=== PATIENT | female | born 1940 | race Caucasian/White ===

== ENCOUNTER 2016-09-02 09:11 | Inpatient (IN) | payer MEDICARE, MEDICAID ==
[~2016-09-02] VITALS: Ht 147.3 cm; Wt 66.6 kg
[~2016-09-02 09:11] MED LIST: AMLO10TA2 PO; AMOX500T2 PO; CALC-586 PO; CHOL200035 PO; EVER5TAB; EXEM25TA5; FERR325T40 PO; GLUC100015 PO; LOSA1TAB96 PO; MAGN250T33 PO; POTA20TA10 PO; WARF1TAB47 PO
--- OUTSIDE RECORDS SUMMARY | 2016-09-02 09:15 | XMS REPORT | Continuity of Care Document ---
Author Author [facility] Organization [facility] Address Unknown Phone Unavailable Support Name Relationship Address Phone PETE BROWN MD Caregiver [address] [place] [address] Unavailable PEBBLES RUTLEDGE MD Caregiver [address] [place] [address] Unavailable SHEREEN LOPES Next Of Kin Unknown [phone] Insurance Providers Guarantor Tanya Lopes Address [address] [place] [address] Email DENIED/NO TO PT [facility] Payer Medicaid Policy Number [id number] Subscriber's Name Tanya Lopes Relationship 18 Self Effective Date 16 Expiration Date 16 Payer Medicare Policy Number [id number] Subscriber's Name Tanya Lopes Relationship 18 Self Problems Active Problems Medical Problem Onset Date Status Anemia Unknown Medications Current Home Medications Medication Dose Units Route Directions Days Qty Instructions Start Date Amlodipine Besylate 10 Mg Tablet 10 Mg Oral Daily 11/11/15 Calcium Carbonate/Vitamin D3 (Calcium + D 600 Mg Tablet) 1 Tab Tablet 1 Tab Oral Twice A Day 09/16/13 Cholecalciferol (Vitamin D3) (Vitamin D3) 2,000 Unit Capsule 2,000 Unit Oral Daily 09/16/13 Glucosamine Sulfate 2KCL (Glucosamine) 1,000 Mg Tablet 2,000 Mg Oral Daily 08/15/13 Losartan/Hydrochlorothiazide (Losartan-Hctz 100-25 Mg Tab) 1 Each Tablet 1 Tab Oral Daily 11/11/15 Potassium Chloride (Klor-Con M20) 20 Meq Tablet 20 Meq Oral Onetime 30 Days 30 Tablet 11/13/15 Past Home Medications Medication Directions Ordered Status Acetaminophen (Tylenol) 325 Mg Tablet, 650 Mg Oral As Needed 07/17/11 Discontinued Acetylcarnitine Hcl (Acetyl L-Carnitine) 250 Mg Capsule, 400 Mg Oral Daily Discontinued Everolimus (Afinitor) 5 Mg Tablet, 2 Tab Oral Daily 11/11/15 Discontinued Exemestane (Aromasin) 25 Mg Tablet, 1 Tab Oral Daily 11/11/15 Discontinued Octreotide Acetate (Sandostatin) 500 Mcg/1 Ml Ampul, 0.2 Ml Sub-Q Every 4 Weeks 03/04/14 Discontinued Potassium Chloride 10 Meq Tab.er.prt, 1 Tab Oral Daily 11/11/15 Discontinued Prochlorperazine Maleate 10 Mg Tablet, 10 Mg Oral Q8h Prn 08/27/11 Discontinued Thioctic Acid (Alpha Lipoic Acid) 100 Mg Capsule, 200 Mg Oral Daily 08/27/11 Discontinued Warfarin Sodium (Coumadin) 5 Mg Tablet, 2.5 Mg Oral Every Sunday, Sunday, Sunday, , And Sunday06/01/15 Discontinued Warfarin Sodium 1 Mg Tablet, 2 Mg Oral Every Sunday06/01/15 Discontinued Social History Social History Problem Response Recorded Date/Time Onset Date Status Chewing Tobacco Status No 09/17/2013 1:16pm Not Applicable Not Applicable Hx Substance Use No 08/20/2015 10:36am Not Applicable Not Applicable Hx Alcohol Use No 11/12/2015 4:45pm Not Applicable Not Applicable Has the pt used tobacco in the last 12 months No 11/11/2015 12:58pm Not Applicable Not Applicable Tobacco Usage none 11/12/2015 3:48pm Not Applicable Not Applicable Query Response Start Date Stop Date Smoking Status Never smoker Hospital Discharge Instructions Current inpatient/outpatient. Discharge instructions are currently unavailable. Plan of Care Current inpatient/outpatient. The plan of care is currently unavailable Functional Status No functional status results. Allergies, Adverse Reactions, Alerts Allergen Type Severity Reaction Status Last Updated Adhesive Allergy Unknown RASH Active 08/23/15 Tramadol Allergy Severe CRAMPING /RASH/ ITCHING Active 08/23/15 Immunizations Query Response on File Recorded Date/Time Hx Influenza Vaccination Y -201411/11/15 12:58pm Hx Pneumococcal Vaccination Y 11/11/15 12:58pm Hx Influenza Vaccination Y 11/11/15 12:58pm Influenza Vaccine Hx 04/201511/12/15 10:43am Vital Signs No known vital signs results. Results Laboratory Results Test Name Result Units Flags Reference Collection Date/Time Result Date/ Time Comments White Blood Count 6.1 T/MM3 4.5-11.0 05/09/2016 9:05/09/2016 9: 29am Red Blood Count 4.09 M/MM3 4.00-5.20 05/09/2016 9:05/09/2016 9: 29am Hemoglobin 8.5 GM/DL L 12-16 05/09/2016 9:05/09/2016 9:29am Hematocrit 26.9 % L 36-46 05/09/2016 9:05/09/2016 9:29am Mean Corpuscular Volume 65.8 UM3 L 80-100 05/09/2016 9:05/09/2016 9 :29am Mean Corpuscular Hemoglobin 20.8 UUG L 26-34 05/09/2016 9:2015 9:29am Mean Corpuscular Hemoglobin Concent 31.6 GM/DL 31-37 05/09/2016 9:05/09/2016 9:29am RDW Standard Deviation 49.9 FL 36.9-50.2 05/09/2016 9:05/09/2016 9 :29am Platelet Count 292 T/MM3 130-400 05/09/2016 9:05/09/2016 9:29am Mean Platelet Volume 8.3 UM3 L 9.4-12.4 05/09/2016 9:05/09/2016 9: 29am Neutrophils (%) (Auto) 77.7 % H 33-66 05/09/2016 9:05/09/2016 9: 29am Lymphocytes (%) (Auto) 13.1 % L 23-45 05/09/2016 9:05/09/2016 9: 29am Monocytes (%) (Auto) 7.5 % 0-9.0 05/09/2016 9:05/09/2016 9:29am Eosinophils (%) (Auto) 1.1 % 0-4 05/09/2016 9:05/09/2016 9:29am Basophils (%) (Auto) 0.3 % 0-2 05/09/2016 9:05/09/2016 9:29am Immature Granulocyte % (Auto) 0.3 % 0.0-0.5 05/09/2016 9:2015 9:29am Absolute Neutrophils (auto) 4.8 T/MM3 1.8-7.7 05/09/2016 9:2015 9:29am Absolute Lymphocytes (auto) 0.8 T/MM3 L 1-4.8 05/09/2016 9:2015 9:29am Absolute Monocytes (auto) 0.5 T/MM3 0-0.8 05/09/2016 9:05/09/2016 9:29am Absolute Eosinophils (auto) 0.1 T/MM3 0-0.5 05/09/2016 9:2015 9:29am Absolute Basophils (auto) 0.0 T/MM3 0-0.2 05/09/2016 9:05/09/2016 9:29am Absolute Immature Granulocyte (auto 0.02 T/MM3 0.00-0.03 05/09/2016 9: 05/09/2016 9:29am Prothromb Time International Ratio 3.25 H 0.99-1.21 05/09/2016 9:05/09/2016 9:35am THERAPUTIC RANGE=2.00-3.00 FOR ANTI-THROMBOSIS THERAPUTIC RANGE=2.50-3.50 FOR IMPLANTED VALVE Icterus Index < 2 0-7 05/09/2016 9:05/09/2016 9:41am Chemistry Specimen Hemolysis < 15 0-25 05/09/2016 9:05/09/2016 9 :41am 0-25: Specimen Exhibited No Hemolysis. Turbidity < 20 0-20 05/09/2016 9:05/09/2016 9:41am Sodium Level 139 MEQ/L 134-144 05/09/2016 9:05/09/2016 9:41am Potassium Level 3.4 MEQ/L L 3.6-5 05/09/2016 9:05/09/2016 9:41am Chloride Level 99 MEQ/L 98-107 05/09/2016 9:05/09/2016 9:41am Carbon Dioxide Level 22 MEQ/L 22-30 05/09/2016 9:2305/09/2016 9: 41am Anion Gap 18 MEQ/L H 5-15 05/09/2016 9:05/09/2016 9:41am Blood Urea Nitrogen 22.0 MG/DL H 7-17 05/09/2016 9:05/09/2016 9: 41am Creatinine 1.0 MG/DL 0.7-1.2 05/09/2016 9:05/09/2016 9:41am BUN/Creatinine Ratio 22 RATIO 6-26 05/09/2016 9:05/09/2016 9:41am Glomerular Filtration Rate Calc 54 05/09/2016 9:05/09/2016 9: 41am Glucose Level 117 MG/DL H 65-110 05/09/2016 9:05/09/2016 9:41am Calculated Osmolality 272 MOSM/KG 261-280 05/09/2016 9:05/09/2016 9:41am Calcium Level 8.8 MG/DL 8.4-10.2 05/09/2016 9:05/09/2016 9:41am Phosphorus Level 3.1 MG/DL 2.5-4.5 05/09/2016 9:05/09/2016 9:41am Total Bilirubin 0.80 MG/DL 0.20-1.30 05/09/2016 9:05/09/2016 9: 41am Alkaline Phosphatase 104 U/L 38-126 05/09/2016 9:05/09/2016 9: 41am Total Protein 7.8 G/DL 6.3-8.2 05/09/2016 9:05/09/2016 9:41am Albumin 4.5 G/DL 3.5-5.0 05/09/2016 9:05/09/2016 9:41am Globulin 3.3 G/DL 2.4-3.6 05/09/2016 9:05/09/2016 9:41am Albumin/Globulin Ratio 1.4 RATIO 1.1-2.2 05/09/2016 9:05/09/2016 9 :41am Aspartate Amino Transf (AST/SGOT) 46 U/L H 14-36 05/09/2016 9:05/09 9:41am Alanine Aminotransferase (ALT/SGPT) 51 U/L 9-52 05/09/2016 9:05/09 9:41am Magnesium Level 1.2 MG/DL L 1.6-2.3 05/09/2016 9:23am 05/09/2016 9:54am Carcinoembryonic Antigen 15.10 UG/L H 0-3.0 05/09/2016 9:23am 2015 10:14am CA 27.29 206.01 U/ML D H 0-37.7 05/09/2016 9:23am 05/09/2016 11:33am Thyroid Stimulating Hormone (TSH) 1.52 MIU/L 0.47-4.68 03/06/2016 10: 27am 03/06/2016 11:37am Urine Color YELLOW YELLOW 03/06/2016 10:27am 03/06/2016 11:01am Urine Turbidity SL CLOUDY CLEAR 03/06/2016 10:27am 03/06/2016 11: 01am Urine Specific [place] 1.025 1.015-1.025 03/06/2016 10:27am 2015 11:01am Urine pH 6.0 5.0-8.0 03/06/2016 10:27am 03/06/2016 11:01am Urine Leukocyte Esterase NEGATIVE NEGATIVE 03/06/2016 10:27am 2015 11:01am Urine Nitrite NEGATIVE NEGATIVE 03/06/2016 10:27am 03/06/2016 11: 01am Urine Protein 2+ A NEGATIVE 03/06/2016 10:27am 03/06/2016 11:01am Urine Glucose (UA) NEGATIVE NEGATIVE 03/06/2016 10:27am 03/06/2016 11 :01am Urine Ketones NEGATIVE NEGATIVE 03/06/2016 10:27am 03/06/2016 11: 01am Urine Urobilinogen 0.2 EU/DL NORMAL 03/06/2016 10:27am 03/06/2016 11: 01am Urine Bilirubin 1+ A NEGATIVE 03/06/2016 10:27am 03/06/2016 11:01am Urine Blood 3+ A NEGATIVE 03/06/2016 10:27am 03/06/2016 11:01am Urine WBC 0-1 /HPF 0-5 03/06/2016 10:27am 03/06/2016 11:08am Urine RBC 3-5 /HPF H 0-3 03/06/2016 10:27am 03/06/2016 11:08am Urine Squamous Epithelial Cells 10-20 03/06/2016 10:27am 2015 11:44am --- 03/06/16 1143 --- UR SQUAM EPI previously reported as: 5-10 Urine Renal Epithelial Cells 1-3 /HPF 03/06/2016 10:27am 03/06/2016 11:44am Urine Bacteria TRACE H NEGATIVE 03/06/2016 10:27am 03/06/2016 11:08am Urine Culture Indicated CULT NOT INDICATED 03/06/2016 10:27am 03/06 11:08am Name: TANYA LOPES Unit #: [id number] : 1940 Sex: F Admit Date: Loc / Svc: VERNA Discharge Date: DIAGNOSTIC IMAGING REPORT Report #: [id number] [facility] [place] Indication: ITS.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 Approximately 60 minutes later 3D PET/CT imaging was performed from the skull base through the mid thighs. The CT images are for attenuation correction purposes only. Findings: Some misregistration artifact noted in the head. No gross abnormal uptake seen within the skull base or neck. Metallic artifact from prior dental restorations. No abnormally metabolic pulmonary nodules or masses. Mild atelectasis in the lung bases. Expected myocardial uptake. No axillary or mediastinal adenopathy. Similar intensity of uptake within the large right hepatic metastasis. This now has an SUV max of 4.9 which is within measurement variability of the comparison. There is however a new area of uptake more superiorly in the right lobe of the liver at location -884.5 with an SUV max of 5.4 which is within the confines of the existing CT abnormality. No other definite new sites of metabolic uptake within the liver. Expected genitourinary and bowel uptake. Lytic lesion in the left iliac bone is again noted with an SUV max of 3.5, similar to the comparison. No new areas of abnormal metabolic uptake seen within the skeleton. Impression: Small new focus of FDG uptake within the patient's existing large right hepatic metastasis with an overall similar degree of uptake within the pre-existing PET lesion here. Stable uptake in the left iliac metastasis. No distinctly new sites of metastatic disease appreciated. . Procedures Procedure Status Date Provider(s) COMPREHEN METABOLIC PANEL Completed 12/14/15 ASSAY OF MAGNESIUM Completed 12/14/15 ASSAY OF PHOSPHORUS Completed 12/14/15 COMPLETE CBC W/AUTO DIFF WBC Completed 12/14/15 METABOLIC PANEL TOTAL CA Completed 12/14/15 ASSAY OF MAGNESIUM Completed 12/14/15 ASSAY OF PHOSPHORUS Completed 12/14/15 COMPLETE CBC W/AUTO DIFF WBC Completed 12/14/15 COMPLETE CBC W/AUTO DIFF WBC Completed 12/14/15 COMPREHEN METABOLIC PANEL Completed 12/14/15 ASSAY OF MAGNESIUM Completed 12/14/15 ASSAY OF PHOSPHORUS Completed 12/14/15 COMPLETE CBC W/AUTO DIFF WBC Completed 12/14/15 COMPREHEN METABOLIC PANEL Completed 12/14/15 ASSAY OF MAGNESIUM Completed 12/14/15 ASSAY OF PHOSPHORUS Completed 12/14/15 COMPLETE CBC W/AUTO DIFF WBC Completed 12/14/15 COMPREHEN METABOLIC PANEL Completed 12/14/15 ASSAY OF MAGNESIUM Completed 12/14/15 ASSAY OF PHOSPHORUS Completed 12/14/15 COMPLETE CBC W/AUTO DIFF WBC Completed 12/14/15 COMPREHEN METABOLIC PANEL Completed 03/06/16 URINALYSIS AUTO W/SCOPE Completed 03/06/16 ASSAY THYROID STIM HORMONE Completed 03/06/16 COMPLETE CBC W/AUTO DIFF WBC Completed 03/06/16 CT THORAX W/DYE Completed 04/24/16 CT ABDOMEN W/DYE Completed 04/24/16 273643"INFUSION, NORMAL SALINE SOLUTION , 250 CC" Completed 04/24/16 142089"LOW OSMOLAR CONTRAST MATERIAL, 300-399 MG/ML IODINE C Completed Encounters Encounter Location Arrival/Admit Date Discharge/Depart Date Attending Provider Registered Clinic [facility] 05/31/16 6:16am PETE BROWN MD Discharged Recurring [facility] 05/09/16 9:12am 06/03/16 11:41pm HUE ZUÑIGA APRN Registered Clinic [facility] 04/24/16 9:10am PETE BROWN MD Registered Clinic [facility] 03/06/16 10:50am PEBBLES RUTLEDGE MD Discharged Recurring [facility] 12/14/15 9:43am 05/26/16 11:59pm HUE ZUÑIGA APRN
--- OUTSIDE RECORDS SUMMARY | 2016-09-02 09:15 | XMS REPORT | Continuity of Care Document ---
Author Author [facility] Organization [facility] Address Unknown Phone Unavailable Support Name Relationship Address Phone PETE BROWN MD Caregiver [address] [address] Unavailable PEBBLES RUTLEDGE MD Caregiver [address] [place] [address] Unavailable SHEREEN LOPES Next Of Kin Unknown [phone] Insurance Providers Guarantor Tanya Lopes Address [address] [place] [address] Email DENIED/NO TO PT [facility] Payer Medicaid Policy Number [id number] Subscriber's Name Tanya Lopes Relationship 18 Self Effective Date 16 Expiration Date 16 Payer Medicare Policy Number [id number] Subscriber's Name Tanya Lopes Relationship 18 Self [...] 03/06/2016 10:27am 03/06/2016 11: 01am Urine Specific [place] 1.025 1.015-1.025 03/06/2016 10:27am 2015 11:01am Urine [...] 03/06 11:08am Name: TANYA LOPES Unit #: [id number] : 1940 Sex: F Admit Date: Loc / Svc: VERNA Discharge Date: DIAGNOSTIC IMAGING REPORT Report #: [id number] [facility] [place] Indication: ITS.REASON: C50.212 BREAST CA PROCEDURE: CT CHEST/ABDOMEN W/C: Encounter: Subsequent Comparison: CT chest abdomen and pelvis dated July 12, [address] dated September 16, 2015 Technique: Axial CT images were performed through the chest and pelvis abdomen the administration of intravenous contrast. Coronal and sagittal two-dimensional reformats. Contrast: Omnipaque 300 100 mL Findings: Chest: Patchy inflammatory or infectious appearing groundglass opacities scattered throughout the lung lombardo, mostly in the lower lobes and right middle lobe. These are new from the comparison. No pleural effusion or pneumothorax. No focal lobar consolidation. The central airways are patent. No axillary or mediastinal lymphadenopathy. Left mastectomy. Heart size is normal. No pericardial effusion. Great vessels are stable in appearance. Abdomen: Large heterogeneous metastasis occupying much of the posterior right lobe of the liver is again noted. This measures 9.3 x 6.5 x 9.8 cm in size. This has grown by approximately 1 cm in each dimension since the prior study. No definite new metastatic lesions. No bile duct dilatation. Small hiatal hernia. The spleen, pancreas, adrenal glands and kidneys are within normal limits. No abdominal lymphadenopathy. Surgical clips in the root of the mesentery. The visualized small and large bowel loops are grossly unremarkable. Bone windows show a lytic destructive lesion the left iliac bone as noted previously. There are also small areas of sclerosis in the right iliac bone. Impression: Enlarging right hepatic metastasis. Stable left iliac bone metastasis. No definite new metastatic disease seen in the chest or abdomen. . Procedures Procedure Status Date Provider(s) COMPREHEN METABOLIC PANEL Completed 03/06/16 URINALYSIS AUTO W/SCOPE Completed 03/06/16 ASSAY THYROID STIM HORMONE Completed 03/06/16 COMPLETE CBC W/AUTO DIFF WBC Completed 03/06/16 CT THORAX W/DYE Completed 04/24/16 CT ABDOMEN W/DYE Completed 04/24/16 502458"INFUSION, NORMAL SALINE SOLUTION , 250 CC" Completed 04/24/16 [id number]"LOW OSMOLAR CONTRAST MATERIAL, 300-399 MG/ML IODINE C Completed Encounters Encounter Location Arrival/Admit Date Discharge/Depart Date Attending Provider Registered [facility] 05/09/16 9:12am HUE ZUÑIGA APRN Registered [facility] 04/24/16 9:10am PETE BROWN MD Discharged [facility] 04/11/16 9:40am 05/26/16 11:59pm HUE ZUÑIGA APRN Registered [facility] 03/06/16 10:50am PEBBLES RUTLEDGE MD
--- OUTSIDE RECORDS SUMMARY | 2016-09-02 09:15 | XMS REPORT | Continuity of Care Document ---
Author Author [facility] Organization [facility] Address Unknown Phone Unavailable Support Name Relationship Address Phone PETE BROWN MD Caregiver [address] [address] Unavailable PEBBLES RUTLEDGE MD Caregiver [address] [place] [address] [address] [place] [address] Unavailable PEBBLES RUTLEDGE MD Caregiver [address] [place] [address] [address] [place] [address] Unavailable SHEREEN LOPES Next Of Kin Unknown [phone] Insurance Providers Guarantor Tanya Lopes Address [address] [place] [address] Email DENIED/NO TO PT [facility] Payer Medicaid Policy Number [id number] Subscriber's Name Tanya Lopes Relationship 18 Self Effective Date 15 Expiration Date 15 Payer Medicare Policy Number [id number] Subscriber's Name Tanya Lopes Relationship 18 Self Effective Date 04 Advance Directives Directive Response Recorded Date/Time Ordered Resuscitation Status Full Code 11/11/15 12:49pm Resuscitation Documents on File WOULD LIKE TO BE DNR 11/11/15 12:55pm DPOA for Healthcare Only No 11/11/15 12:55pm Problems Active Problems Medical Problem Onset Date [...] Not Applicable Not Applicable Hx Substance Use Yes 06/01/2015 3:04pm Not Applicable Not Applicable Hx Alcohol Use No 11/12/2015 4:45pm Not Applicable Not Applicable Has the pt used tobacco in the last 12 months No 11/11/2015 12:58pm Not Applicable Not Applicable Tobacco Usage none 11/12/2015 3:48pm Not Applicable Not Applicable Query Response Start Date Stop Date Smoking Status Never smoker Hospital Discharge Instructions Instructions: Care Instructions: Reason for Hospitalization: anemia I was in the hospital because (patient own words): MY LAB VAULES WERE OFF Pending Lab / Results: No Pending Lab Condition at time of discharge: Fair Plan of Care Discharge Date 11/13/15 4:05pm Disposition 01 DISCHARGED HOME, SELF-CARE Instructions/Education Provided Anemia Prescriptions See Medication Section Additional Instructions/Education Call Dr. Brown and [facility] office for f/u appointments. Care Plan and Goals See Discharge Instructions Section Functional Status Query Response Date Recorded Mobility Status Ambulatory w/assist November 13, 2015 3:02pm Assistive Devices Cane November 13, 2015 3:02pm Activity Limitations Weakness November 13, 2015 3:02pm Feeding Ability Independent November 13, 2015 3:02pm Toileting Ability Independent November 13, 2015 3:02pm Grooming Ability Independent November 13, 2015 3:02pm Dressing Ability Independent November 13, 2015 3:02pm Driving Ability Independent November 13, 2015 3:02pm Housework Ability Independent November 13, 2015 3:02pm Meal Preparation Ability Independent November 13, 2015 3:02pm Stair Climbing Ability Independent November 13, 2015 3:02pm Ability to complete ADL's impeded by No change November 13, 2015 3:02pm Cognitive/Perceptual Impairments Impaired vision November 13, 2015 3:02pm Visual Assistive Devices Glasses November 11, 2015 1:23pm Allergies, Adverse Reactions, Alerts Allergen Type Severity Reaction Status Last Updated Adhesive Allergy Unknown RASH Active 08/23/15 Tramadol Allergy Severe CRAMPING /RASH/ ITCHING Active 08/23/15 Immunizations Query Response on File Recorded Date/Time Hx Influenza Vaccination Y 11/11/15 12:58pm Hx Pneumococcal Vaccination Y 11/11/15 12:58pm Hx Influenza Vaccination Y 11/11/15 12:58pm Influenza Vaccine Hx 04/201511/12/15 10:43am Vital Signs Acute Vital Signs Vital Response Date/Time Temperature (Fahrenheit) 99.1 deg F (96.8 - 99.1) 11/13/2015 11:41am Temperature (Calculated Celsius) 37.44368 degrees C (36.0 - 37.3) 11/13/2015 11:41am Temperature Source Oral 11/12/2015 9:58pm Pulse Rate (adult) 69 bpm (60 - 100) 11/13/2015 11:41am Respiratory Rate 18 breaths/min (10 - 20) 11/13/2015 11:41am O2 Sat by Pulse Oximetry 97 % (90 - 100) 11/13/2015 11:41am Oxygen Delivery Method Room Air 11/12/2015 9:58pm Oxygen Delivery Method Room Air 11/13/2015 11:41am Oxygen Flow Rate 3.00 L/min 11/12/2015 5:20pm Blood Pressure 117/66 mm Hg 11/13/2015 11:41am Blood Pressure Source Automatic Cuff 11/13/2015 11:41am Height (Feet) 5 feet 11/12/2015 3:48pm Height (Inches) 0.00 inches 11/12/2015 3:48pm Weight (Kilograms) 78.400 kg 11/12/2015 7:32am Body Mass Index (BMI) 34.4 11/11/2015 12:54pm Results Laboratory Results Test Name Result Units Flags Reference Collection Date/Time Result Date/ Time Comments Phosphorus Level 3.2 MG/DL 2.5-4.5 11/11/2015 9:32am 11/11/2015 10: 05am Magnesium Level 1.2 MG/DL L 1.6-2.3 11/11/2015 9:32am 11/11/2015 10: 13am White Blood Count 4.7 T/MM3 4.5-11.0 11/13/2015 4:57am 11/13/2015 5: 35am Red Blood Count 3.57 M/MM3 L 4.00-5.20 11/13/2015 4:57am 11/13/2015 5: 35am Hemoglobin 8.4 GM/DL L 12-16 11/13/2015 4:57am 11/13/2015 5:35am Hematocrit 25.5 % D L 36-46 11/13/2015 4:57am 11/13/2015 5:35am Mean Corpuscular Volume 71.4 UM3 L 80-100 11/13/2015 4:57am 11/13/2015 5 :35am Mean Corpuscular Hemoglobin 23.5 UUG L 26-34 11/13/2015 4:57am 2015 5:35am Mean Corpuscular Hemoglobin Concent 32.9 GM/DL 31-37 11/13/2015 4:57am 11/13/2015 5:35am RDW Standard Deviation 45.8 FL 36.9-50.2 11/13/2015 4:57am 11/13/2015 5 :35am Platelet Count 217 T/MM3 130-400 11/13/2015 4:57am 11/13/2015 5:35am Mean Platelet Volume 8.9 UM3 L 9.4-12.4 11/13/2015 4:57am 11/13/2015 5: 35am Neutrophils (%) (Auto) 73.2 % H 33-66 11/13/2015 4:57am 11/13/2015 5: 35am Lymphocytes (%) (Auto) 14.5 % L 23-45 11/13/2015 4:57am 11/13/2015 5: 35am Monocytes (%) (Auto) 10.0 % H 0-9.0 11/13/2015 4:57am 11/13/2015 5:35am Eosinophils (%) (Auto) 1.9 % 0-4 11/13/2015 4:57am 11/13/2015 5:35am Basophils (%) (Auto) 0.2 % 0-2 11/13/2015 4:57am 11/13/2015 5:35am Immature Granulocyte % (Auto) 0.2 % 0.0-0.5 11/13/2015 4:57am 2015 5:35am Absolute Neutrophils (auto) 3.4 T/MM3 1.8-7.7 11/13/2015 4:57am 2015 5:35am Absolute Lymphocytes (auto) 0.7 T/MM3 L 1-4.8 11/13/2015 4:57am 2015 5:35am Absolute Monocytes (auto) 0.5 T/MM3 0-0.8 11/13/2015 4:57am 11/13/2015 5:35am Absolute Eosinophils (auto) 0.1 T/MM3 0-0.5 11/13/2015 4:57am 2015 5:35am Absolute Basophils (auto) 0.0 T/MM3 0-0.2 11/13/2015 4:57am 11/13/2015 5:35am Absolute Immature Granulocyte (auto 0.01 T/MM3 0.00-0.03 11/13/2015 4: 57am 11/13/2015 5:35am Prothromb Time International Ratio 1.60 H 0.90-1.23 11/12/2015 3:52pm 11/12/2015 4:00pm THERAPUTIC RANGE=2.00-3.00 FOR ANTI-THROMBOSIS THERAPUTIC RANGE=2.50-3.50 FOR IMPLANTED VALVE Icterus Index < 2 0-7 11/13/2015 4:57am 11/13/2015 5:26am Chemistry Specimen Hemolysis < 15 0-25 11/13/2015 4:57am 11/13/2015 5 :26am 0-25: Specimen Exhibited No Hemolysis. Turbidity < 20 0-20 11/13/2015 4:57am 11/13/2015 5:26am Sodium Level 138 MEQ/L 134-144 11/13/2015 4:57am 11/13/2015 5:26am Potassium Level 3.5 MEQ/L L 3.6-5 11/13/2015 4:57am 11/13/2015 5:26am Chloride Level 103 MEQ/L 98-107 11/13/2015 4:57am 11/13/2015 5:26am Carbon Dioxide Level 25 MEQ/L 22-30 11/13/2015 4:57am 11/13/2015 5: 26am Anion Gap 10 MEQ/L 5-15 11/13/2015 4:57am 11/13/2015 5:26am Blood Urea Nitrogen 14.0 MG/DL D 7-17 11/13/2015 4:57am 11/13/2015 5: 34am Creatinine 0.7 MG/DL 0.7-1.2 11/13/2015 4:57am 11/13/2015 5:26am BUN/Creatinine Ratio 20 RATIO 6-26 11/13/2015 4:57am 11/13/2015 5:26am Glomerular Filtration Rate Calc 82 11/13/2015 4:57am 11/13/2015 5: 26am Glucose Level 100 MG/DL 65-110 11/13/2015 4:57am 11/13/2015 5:26am Calculated Osmolality 267 MOSM/KG 261-280 11/13/2015 4:57am 11/13/2015 5:26am Calcium Level 7.8 MG/DL L 8.4-10.2 11/13/2015 4:57am 11/13/2015 5:26am Total Bilirubin 0.90 MG/DL 0.20-1.30 11/13/2015 4:57am 11/13/2015 5: 26am Alkaline Phosphatase 91 U/L 38-126 11/13/2015 4:57am 11/13/2015 5:26am Total Protein 6.4 G/DL 6.3-8.2 11/13/2015 4:57am 11/13/2015 5:26am Albumin 3.5 G/DL 3.5-5.0 11/13/2015 4:57am 11/13/2015 5:26am Globulin 2.9 G/DL 2.4-3.6 11/13/2015 4:57am 11/13/2015 5:26am Albumin/Globulin Ratio 1.2 RATIO 1.1-2.2 11/13/2015 4:57am 11/13/2015 5 :26am Aspartate Amino Transf (AST/SGOT) 44 U/L H 14-36 11/13/2015 4:57am 11/12 5:26am Alanine Aminotransferase (ALT/SGPT) 38 U/L 9-52 11/13/2015 4:57am 11/12 5:26am Procedures Procedure Status Date Provider(s) BONE BIOPSY TROCAR/NEEDLE Completed 08/23/15 CT SCAN FOR NEEDLE BIOPSY Completed 08/23/15 AUTOMATED PLATELET COUNT Completed 08/23/15 PROTHROMBIN TIME Completed 08/23/15 TISSUE EXAM BY PATHOLOGIST Completed 08/23/15 DECALCIFY TISSUE Completed 08/23/15 IMMUNOHISTO ANTIBODY SLIDE Completed 08/23/15 IMMUNOHISTO ANTB 1ST STAIN Completed 08/23/15 CT ABD & PELV 1/> REGNS Completed 09/16/15 392099"INFUSION, NORMAL SALINE SOLUTION , 250 CC" Completed 09/16/15 [id number]"LOW OSMOLAR CONTRAST MATERIAL, 300-399 MG/ML IODINE C Completed EGD (esophagogastroduodenoscopy) Completed 11/12/15 ANNEMARIE SWANSON MD Colonoscopy Completed 11/12/15 ANNEMARIE SWANSON MD Encounters Encounter Location Arrival/Admit Date Discharge/Depart Date Attending Provider Discharged Inpatient [facility] 11/12/15 2:20pm 11/13/15 4:05pm PEBBLES RUTLEDGE MD Registered [facility] 11/11/15 9:39am PETE BROWN MD Registered [facility] 11/11/15 9:34am PETE BROWN MD Registered [facility] 09/16/15 8:56am MIGUEL AYALA DO Departed [facility] 08/23/15 10:37am 08/23/15 2:55pm JAMEY ORTIZ DO
--- OUTSIDE RECORDS SUMMARY | 2016-09-02 09:15 | XMS REPORT | Continuity of Care Document ---
Author Author [facility] Organization [facility] Address Unknown Phone Unavailable Support Name Relationship Address Phone PETE BROWN MD Caregiver [address] [address] Unavailable PEBBLES RUTLEDGE MD Caregiver [address] [place] [address] Unavailable SHEREEN LOPES Next Of Kin Unknown [phone] C Insurance Providers Guarantor Tanya Lopes Address [address] [place] [address] Email DENIED/NO TO PT [facility] Payer Medicaid Policy Number [id number] Subscriber's Name Tanya Lopes Relationship 18 Self Effective Date 15 Expiration Date 15 Payer Medicare Policy Number [id number] Subscriber's Name Tanya Lopes Relationship 18 Self Effective Date 04 Problems Active Problems Medical Problem Onset Date [...] Y 11/11/15 12:58pm Hx Influenza Vaccination Y -201411/11/15 12:58pm Influenza Vaccine Hx 04/201511/12/15 10:43am Vital Signs Acute Vital Signs Vital Response Date/Time Temperature (Fahrenheit) 99.1 deg F (96.8 - 99.1) 11/13/2015 11:41am Temperature (Calculated Celsius) 37.55953 degrees C (36.0 - 37.3) 11/13/2015 11:41am [...] Result Date/ Time Comments White Blood Count 6.6 T/MM3 4.5-11.0 11/16/2015 9:00am 11/16/2015 9: 19am Red Blood Count 4.15 M/MM3 4.00-5.20 11/16/2015 9:00am 11/16/2015 9: 19am Hemoglobin 9.7 GM/DL L 12-16 11/16/2015 9:00am 11/16/2015 9:19am Hematocrit 29.9 % L 36-46 11/16/2015 9:00am 11/16/2015 9:19am Mean Corpuscular Volume 72.0 UM3 L 80-100 11/16/2015 9:00am 11/16/2015 9 :19am Mean Corpuscular Hemoglobin 23.4 UUG L 26-34 11/16/2015 9:00am 2015 9:19am Mean Corpuscular Hemoglobin Concent 32.4 GM/DL 31-37 11/16/2015 9:00am 11/16/2015 9:19am RDW Standard Deviation 51.8 FL H 36.9-50.2 11/16/2015 9:0011/16/2015 9:19am Platelet Count 269 T/MM3 130-400 11/16/2015 9:0011/16/2015 9:19am Mean Platelet Volume 8.7 UM3 L 9.4-12.4 11/16/2015 9:00am 11/16/2015 9: 19am Neutrophils (%) (Auto) 72.5 % H 33-66 11/16/2015 9:0011/16/2015 9: 19am Lymphocytes (%) (Auto) 14.7 % L 23-45 11/16/2015 9:00am 11/16/2015 9: 19am Monocytes (%) (Auto) 10.9 % H 0-9.0 11/16/2015 9:0011/16/2015 9:19am Eosinophils (%) (Auto) 0.9 % 0-4 11/16/2015 9:0011/16/2015 9:19am Basophils (%) (Auto) 0.5 % 0-2 11/16/2015 9:0011/16/2015 9:19am Immature Granulocyte % (Auto) 0.5 % 0.0-0.5 11/16/2015 9:002015 9:19am Absolute Neutrophils (auto) 4.8 T/MM3 1.8-7.7 11/16/2015 9:00am 2015 9:19am Absolute Lymphocytes (auto) 1.0 T/MM3 1-4.8 11/16/2015 9:002015 9:19am Absolute Monocytes (auto) 0.7 T/MM3 0-0.8 11/16/2015 9:00am 11/16/2015 9:19am Absolute Eosinophils (auto) 0.1 T/MM3 0-0.5 11/16/2015 9:002015 9:19am Absolute Basophils (auto) 0.0 T/MM3 0-0.2 11/16/2015 9:0011/16/2015 9:19am Absolute Immature Granulocyte (auto 0.03 T/MM3 0.00-0.03 11/16/2015 9: 0011/16/2015 9:19am Icterus Index < 2 0-7 11/16/2015 9:0011/16/2015 9:29am Chemistry Specimen Hemolysis < 15 0-25 11/16/2015 9:0011/16/2015 9 :29am 0-25: Specimen Exhibited No Hemolysis. Turbidity < 20 0-20 11/16/2015 9:0011/16/2015 9:29am Sodium Level 136 MEQ/L 134-144 11/16/2015 9:0011/16/2015 9:29am Potassium Level 3.9 MEQ/L 3.6-5 11/16/2015 9:0011/16/2015 9:29am Chloride Level 102 MEQ/L 98-107 11/16/2015 9:0011/16/2015 9:29am Carbon Dioxide Level 22 MEQ/L 22-30 11/16/2015 9:0011/16/2015 9: 29am Anion Gap 12 MEQ/L 5-15 11/16/2015 9:0011/16/2015 9:29am Blood Urea Nitrogen 16.0 MG/DL 7-17 11/16/2015 9:0011/16/2015 9: 29am Creatinine 0.7 MG/DL 0.7-1.2 11/16/2015 9:0011/16/2015 9:29am BUN/Creatinine Ratio 23 RATIO 6-26 11/16/2015 9:0011/16/2015 9:29am Glomerular Filtration Rate Calc 82 11/16/2015 9:0011/16/2015 9: 29am Glucose Level 72 MG/DL 65-110 11/16/2015 9:0011/16/2015 9:29am Calculated Osmolality 262 MOSM/KG 261-280 11/16/2015 9:0011/16/2015 9:29am Calcium Level 8.8 MG/DL 8.4-10.2 11/16/2015 9:0011/16/2015 9:29am Phosphorus Level 2.9 MG/DL 2.5-4.5 11/16/2015 9:0011/16/2015 9:29am Magnesium Level 1.3 MG/DL L 1.6-2.3 11/16/2015 9:0011/16/2015 9:47am Iron Level 43 UG/DL 37-170 11/16/2015 9:00am 11/17/2015 1:56am Total Iron Binding Capacity 466 UG/DL 261-497 11/16/2015 9:00am 2015 1:13am Percent Iron Saturation 9 % 9-55 11/16/2015 9:00am 11/17/2015 1:56am Ferritin 13.6 NG/ML 11-264 11/16/2015 9:00am 11/17/2015 2:33am Prothromb Time International Ratio 1.60 H 0.90-1.23 11/12/2015 3:52pm 11/12/2015 4:00pm THERAPUTIC RANGE=2.00-3.00 FOR ANTI-THROMBOSIS THERAPUTIC RANGE=2.50-3.50 FOR IMPLANTED VALVE Total Bilirubin 0.90 MG/DL 0.20-1.30 11/13/2015 4:57am [...] 11/12 5:26am Procedures Procedure Status Date Provider(s) CT ABD & PELV 1/> REGNS Completed 09/16/15 870135"INFUSION, NORMAL SALINE SOLUTION , 250 CC" Completed 09/16/15385331"LOW OSMOLAR CONTRAST MATERIAL, 300-399 MG/ML IODINE C Completed COMP SCREEN MAMMOGRAM ADD-ON Completed 11/25/15 BREAST TOMOSYNTHESIS BI Completed 11/25/15 [id number]"SCREENING MAMMOGRAPHY, PRODUCING DIRECT DIGITAL IMAGE Completed EGD DIAGNOSTIC BRUSH WASH Completed 11/12/15 ANNEMARIE SWANSON MD DIAGNOSTIC COLONOSCOPY Completed 11/12/15 ANNEMARIE SWANSON MD BLOOD TRANSFUSION SERVICE Completed 11/12/15 PETE BROWN MD INSPECTION OF UPPER INTESTINAL TRACT, ENDO Completed 11/12/15 ANNEMARIE SWANSON MD INSPECTION OF LOWER INTESTINAL TRACT, ENDO Completed 11/12/15 ANNEMARIE SWANSON MD TRANSFUSE NONAUT FROZEN PLASMA IN PERIPH VEIN, PERC Completed 11/11/15 PETE BROWN MD TRANSFUSE NONAUT RED BLOOD CELLS IN PERIPH VEIN, PERC Completed 11/11/15 PETE BROWN MD Encounters Encounter Location Arrival/Admit Date Discharge/Depart Date Attending Provider Registered [facility] 11/25/15 9:45am PETE BROWN MD Discharged Recurring [facility] 11/16/15 9:11am 12/02/15 7:42pm PETE BROWN MD Discharged Inpatient [facility] 11/12/15 2:20pm 11/13/15 4:05pm PEBBLES RUTLEDGE MD Discharged Recurring [facility] 11/11/15 9:34am 12/02/15 6:28pm PETE BROWN MD Registered Clinic [facility] 09/16/15 8:56am MIGUEL AYALA DO
--- OUTSIDE RECORDS SUMMARY | 2016-09-02 09:15 | XMS REPORT | Continuity of Care Document ---
Author Author [facility] Organization [facility] Address Unknown Phone Unavailable Support Name Relationship Address Phone PETE BROWN MD Caregiver [address] [place] [address] Unavailable HAYDER HAWTHORNE MD Caregiver [address] [facility] [place] [address] Unavailable PEBBLES RUTLEDGE MD Caregiver [address] [place] [address] [place] [address] Unavailable SHEREEN LOPES Next Of Kin Unknown [phone] Insurance Providers Guarantor Tanya Lopes Address [address] [place] [address] Email DENIED/NO COMPUTER 16 Payer Medicaid Policy Number [id number] Subscriber's Name Tanya Lopes Relationship 18 Self Effective Date 16 Expiration Date 16 Payer Medicare Policy Number [id number] Subscriber's Name Tanya Lopes Relationship 18 Self Effective Date 04 Advance Directives Directive Response Recorded Date/Time Ordered Resuscitation Status Full Code 06/13/16 11:02am Resuscitation Documents on File No 06/13/16 11:04am DPOA for Healthcare Only No 06/13/16 11:04am Living Will No 06/13/16 11:04am Problems Active Problems Medical Problem Onset Date Status Anemia Unknown Medications Current Home Medications Medication Dose Units Route Directions Days Qty Instructions Start Date Amlodipine Besylate 10 Mg Tablet 10 Mg Oral Daily 11/11/15 Amoxicillin 500 Mg Tablet 1 Tab Oral Every 12 Hours 06/13/16 Calcium Carbonate/Vitamin D3 (Calcium + D 600 Mg Tablet) 1 Tab Tablet 1 Tab Oral Twice A Day 09/16/13 Cholecalciferol (Vitamin D3) (Vitamin D3) 2,000 Unit Capsule 2,000 Unit Oral Daily 09/16/13 Everolimus (Afinitor) 5 Mg Tablet 06/13/16 Exemestane 25 Mg Tablet 06/13/16 Ferrous Sulfate (Iron) 325 Mg Tablet 2 Tab Oral Give With Breakfast BEST WITH FOOD. 01/09/17 Glucosamine Sulfate 2KCL (Glucosamine) 1,000 Mg Tablet 2,000 Mg Oral Daily 08/15/13 Losartan/Hydrochlorothiazide (Losartan-Hctz 100-25 Mg Tab) 1 Each Tablet 1 Tab Oral Daily 11/11/15 Magnesium Oxide (Magnesium) 250 Mg Tablet 250 Mg Oral Daily 06/13 Potassium Chloride (Klor-Con M20) 20 Meq Tablet 20 Meq Oral Onetime 30 Days 30 Tablet 11/13/15 Warfarin Sodium (Coumadin) 1 Mg Tablet 1 Tab Oral Daily 30 Tablet 06/13/16 Past Home Medications Medication Directions Ordered Status [...] Problem Response Recorded Date/Time Onset Date Status Reason for Hospitalization US BIOPSY LIVER 06/13/2016 4:40pm Not Applicable Not Applicable Chewing Tobacco Status No 09/17/2013 1:16pm Not Applicable Not Applicable Hx Substance Use No 06/12/2016 2:49pm Not Applicable Not Applicable Hx Alcohol Use No 06/12/2016 2:49pm Not Applicable Not Applicable Has the pt used tobacco in the last 12 months No 06/13/2016 12:11pm Not Applicable Not Applicable Tobacco Usage none 11/12/2015 3:48pm Not Applicable Not Applicable Query Response Start Date Stop Date Smoking Status Never smoker Hospital Discharge Instructions Instructions: Care Instructions: I was in the hospital because (patient own words): TO GET A LIVER BIOPSY Discharge Diet: PRIOR Discharge Activity: -RESTART MEDS STOPPED FOR THIS PROCEDURE AT NEXT DAY. -DO NOT EXERCISE OR DO HEAVY LIFTING FOR ONE WEEK. -MAY RETURN TO WORK NEXT DAY. MAY DRIVE NEXT DAY. -MAY SHOWER/BATHE STARTING NEXT DAY Follow Up Appointments: PREVIOUSLY SCHEDULED Pending Lab / Results: Follow up w/ your PCP Patient Instructions: MAY SHOWER/BATHE STARTING NEXT DAY MAY RETURN TO WORK NEXT DAY MAY START DRIVING NEXT DAY DO NOT EXERCISE OR DO HEAVY LIFTING FOR ONE WEEK RESTART MEDS STOPPED FOR THE PROCEDURE STARTING THE NEXT DAY (START COUMADIN THE NEXT DAY) Expected Signs/Symptoms: N/A Notify Physician If: CONCERNS During Business Hours:: Please call the physician's office After Business Hours:: Please call [phone] and have the embossing press operator molded goods page the physician. Pain Management/Treatment: N/A Wound/Incision Care: N/A Condition at time of discharge: Good Plan of Care Discharge Date 06/13/16 4:45pm Instructions/Education Provided DI for Liver Biopsy Prescriptions See Medication Section Functional Status Query Response Date Recorded Mobility Status Ambulatory June 13, 2016 11:08am Assistive Devices Four Wheeled Walker June 13, 2016 11:08am Activity Limitations None June 13, 2016 11:08am Feeding Ability Independent June 13, 2016 11:08am Toileting Ability Independent June 13, 2016 11:08am Driving Ability Independent June 13, 2016 11:08am Housework Ability Independent June 13, 2016 11:08am Meal Preparation Ability Independent June 13, 2016 11:08am Stair Climbing Ability Dependent June 13, 2016 11:08am Ability to complete ADL's impeded by No change June 13, 2016 11:08am Cognitive/Perceptual Impairments None June 13, 2016 11:08am Visual Assistive Devices Glasses With patient June 13, 2016 11:08am Preferred Method of Learning Reading Listening June 13, 2016 11:08am Allergies, Adverse Reactions, Alerts Allergen Type Severity Reaction Status Last Updated Adhesive Allergy Unknown RASH Active 08/23/15 Tramadol Allergy Severe CRAMPING /RASH/ ITCHING Active 08/23/15 Immunizations Query Response on File Recorded Date/Time Hx Influenza Vaccination Y APR 2016 06/13/16 12:11pm Hx Pneumococcal Vaccination Y 05/201606/13/16 12:11pm Hx Influenza Vaccination Y APR 2016 06/13/16 12:11pm Influenza Vaccine Hx APRIL 2016 06/13/16 12:17pm Vital Signs Acute Vital Signs Vital Response Date/Time Temperature (Fahrenheit) 96.8 deg F (96.8 - 99.1) 06/13/2016 1:45pm Temperature (Calculated Celsius) 36.43643 degrees C (36.0 - 37.3) 06/13/2016 1:45pm Temperature Source Oral 06/13/2016 1:45pm Pulse Rate (adult) 80 bpm (60 - 100) 06/13/2016 3:30pm Respiratory Rate 14 breaths/min (10 - 20) 06/13/2016 3:30pm O2 Sat by Pulse Oximetry 99 % (90 - 100) 06/13/2016 3:30pm Oxygen Delivery Method Room Air 06/13/2016 3:30pm Oxygen Delivery Method Room Air 06/13/2016 11:08am Oxygen Flow Rate 2.00 L/min 06/13/2016 1:22pm Blood Pressure 128/75 mm Hg 06/13/2016 3:30pm Blood Pressure Source Automatic Cuff 06/13/2016 3:30pm Height (Feet) 5 feet 06/13/2016 10:59am Height (Inches) 0.00 inches 06/13/2016 10:59am Weight (Kilograms) 68.800 kg 06/13/2016 11:07am Body Mass Index (BMI) 29.6 06/13/2016 10:59am Results Laboratory Results Test Name Result Units Flags Reference Collection Date/Time Result Date/ Time Comments Urine Color YELLOW YELLOW 01/14/2016 10:00am 01/14/2016 10:20am Urine Turbidity CLEAR CLEAR 01/14/2016 10:00am 01/14/2016 10:20am Urine Specific [place] <=1.005 L 1.015-1.025 01/14/2016 10:00am 2015 10:20am Urine pH 6.5 5.0-8.0 01/14/2016 10:00am 01/14/2016 10:20am Urine Leukocyte Esterase NEGATIVE NEGATIVE 01/14/2016 10:00am 2015 10:20am Urine Nitrite NEGATIVE NEGATIVE 01/14/2016 10:00am 01/14/2016 10: 20am Urine Protein NEGATIVE NEGATIVE 01/14/2016 10:00am 01/14/2016 10: 20am Urine Glucose (UA) NEGATIVE NEGATIVE 01/14/2016 10:00am 01/14/2016 10 :20am Urine Ketones NEGATIVE NEGATIVE 01/14/2016 10:00am 01/14/2016 10: 20am Urine Urobilinogen 0.2 EU/DL NORMAL 01/14/2016 10:00am 01/14/2016 10: 20am Urine Bilirubin NEGATIVE NEGATIVE 01/14/2016 10:00am 01/14/2016 10: 20am Urine Blood 1+ A NEGATIVE 01/14/2016 10:00am 01/14/2016 10:20am Urine WBC 0-1 /HPF 0-5 01/14/2016 10:00am 01/14/2016 10:38am Urine RBC 3-5 /HPF H 0-3 01/14/2016 10:00am 01/14/2016 10:38am Urine Squamous Epithelial Cells 0-5 01/14/2016 10:00am 01/14/2016 10:38am Urine Bacteria NONE SEEN NEGATIVE 01/14/2016 10:00am 01/14/2016 10: 38am Urine Culture Indicated CULT NOT INDICATED 01/14/2016 10:00am 01/13 10:38am White Blood Count 6.8 T/MM3 4.5-11.0 06/06/2016 9:04am 06/06/2016 9: 18am Red Blood Count 3.83 M/MM3 L 4.00-5.20 06/06/2016 9:04am 06/06/2016 9: 18am Hemoglobin 7.8 GM/DL L 12-16 06/06/2016 9:04am 06/06/2016 9:18am Hematocrit 25.5 % L 36-46 06/06/2016 9:04am 06/06/2016 9:18am Mean Corpuscular Volume 66.6 UM3 L 80-100 06/06/2016 9:04am 06/06/2016 9 :18am Mean Corpuscular Hemoglobin 20.4 UUG L 26-34 06/06/2016 9:04am 2016 9:18am Mean Corpuscular Hemoglobin Concent 30.6 GM/DL L 31-37 06/06/2016 9:0406/06/2016 9:18am RDW Standard Deviation 49.3 FL 36.9-50.2 06/06/2016 9:0406/06/2016 9 :18am Mean Platelet Volume 8.6 UM3 L 9.4-12.4 06/06/2016 9:04am 06/06/2016 9: 18am Neutrophils (%) (Auto) 81.7 % H 33-66 06/06/2016 9:0406/06/2016 9: 18am Lymphocytes (%) (Auto) 8.6 % L 23-45 06/06/2016 9:04am 06/06/2016 9: 18am Monocytes (%) (Auto) 8.6 % 0-9.0 06/06/2016 9:0406/06/2016 9:18am Eosinophils (%) (Auto) 0.7 % 0-4 06/06/2016 9:0406/06/2016 9:18am Basophils (%) (Auto) 0.3 % 0-2 06/06/2016 9:0406/06/2016 9:18am Immature Granulocyte % (Auto) 0.1 % 0.0-0.5 06/06/2016 9:2016 9:18am Absolute Neutrophils (auto) 5.5 T/MM3 1.8-7.7 06/06/2016 9:2016 9:18am Absolute Lymphocytes (auto) 0.6 T/MM3 L 1-4.8 06/06/2016 9:2016 9:18am Absolute Monocytes (auto) 0.6 T/MM3 0-0.8 06/06/2016 9:06/06/2016 9:18am Absolute Eosinophils (auto) 0.1 T/MM3 0-0.5 06/06/2016 9:2016 9:18am Absolute Basophils (auto) 0.0 T/MM3 0-0.2 06/06/2016 9:06/06/2016 9:18am Absolute Immature Granulocyte (auto 0.01 T/MM3 0.00-0.03 06/06/2016 9: 06/06/2016 9:18am Icterus Index < 2 0-7 06/06/2016 9:0406/06/2016 9:29am Chemistry Specimen Hemolysis < 15 0-25 06/06/2016 9:0406/06/2016 9 :29am 0-25: Specimen Exhibited No Hemolysis. Turbidity < 20 0-20 06/06/2016 9:0406/06/2016 9:29am Sodium Level 135 MEQ/L 134-144 06/06/2016 9:04am 06/06/2016 9:29am Potassium Level 3.8 MEQ/L 3.6-5 06/06/2016 9:04am 06/06/2016 9:29am Chloride Level 99 MEQ/L 98-107 06/06/2016 9:04am 06/06/2016 9:29am Carbon Dioxide Level 23 MEQ/L 22-30 06/06/2016 9:04am 06/06/2016 9: 29am Anion Gap 13 MEQ/L 5-15 06/06/2016 9:04am 06/06/2016 9:29am Blood Urea Nitrogen 16.0 MG/DL 7-17 06/06/2016 9:04am 06/06/2016 9: 29am Creatinine 0.8 MG/DL 0.7-1.2 06/06/2016 9:04am 06/06/2016 9:29am BUN/Creatinine Ratio 20 RATIO 6-26 06/06/2016 9:04am 06/06/2016 9:29am Glomerular Filtration Rate Calc 70 06/06/2016 9:0406/06/2016 9: 29am Glucose Level 96 MG/DL 65-110 06/06/2016 9:0406/06/2016 9:29am Calculated Osmolality 261 MOSM/KG 261-280 06/06/2016 9:0406/06/2016 9:29am Calcium Level 9.0 MG/DL 8.4-10.2 06/06/2016 9:0406/06/2016 9:29am Phosphorus Level 2.5 MG/DL 2.5-4.5 06/06/2016 9:0406/06/2016 9:29am Total Bilirubin 0.70 MG/DL 0.20-1.30 06/06/2016 9:0406/06/2016 9: 29am Alkaline Phosphatase 114 U/L 38-126 06/06/2016 9:0406/06/2016 9: 29am Total Protein 7.6 G/DL 6.3-8.2 06/06/2016 9:0406/06/2016 9:29am Albumin 4.3 G/DL 3.5-5.0 06/06/2016 9:0406/06/2016 9:29am Globulin 3.3 G/DL 2.4-3.6 06/06/2016 9:0406/06/2016 9:29am Albumin/Globulin Ratio 1.3 RATIO 1.1-2.2 06/06/2016 9:0406/06/2016 9 :29am Aspartate Amino Transf (AST/SGOT) 40 U/L H 14-36 06/06/2016 9:0406/06 9:29am Alanine Aminotransferase (ALT/SGPT) 43 U/L 9-52 06/06/2016 9:0406/06 9:29am Magnesium Level 1.5 MG/DL L 1.6-2.3 06/06/2016 9:0406/06/2016 9:43am Carcinoembryonic Antigen 17.90 UG/L H 0-3.0 06/06/2016 9:042016 9:59am CA 27.29 196.35 U/ML H 0-37.7 06/06/2016 9:0406/06/2016 11:09am Platelet Count 290 T/MM3 130-400 06/13/2016 11:12am 06/13/2016 11:21am Prothromb Time International Ratio 1.86 H 0.76-1.04 06/13/2016 11:12am 06/13/2016 11:28am THERAPUTIC RANGE=2.00-3.00 FOR ANTI-THROMBOSIS THERAPUTIC RANGE=2.50-3.50 FOR IMPLANTED VALVE Name: TANYA LOPES Unit #: [id number] : 1940 Sex: F Admit Date: Loc / Svc: SRG Discharge Date: DIAGNOSTIC IMAGING REPORT Report #: [id number] [facility] ALEX [place] Indication:ITS.REASON: C7A.012; C50.212; C78.7 Procedure:US BIOPSY LIVER MONITORED IV SEDATION: The patient was given 1 mg Versed and 50 mcg fentanyl intravenously . This was administered by the Rn Neonatal nurse. The Rn Neonatal nurse did continuous monitoring during the procedure in radiology and also after the procedure in the patient's recovery room. Monitoring consisted of heart rate, pulse oximetry, and blood pressure. There is no complication. LIVER BIOPSY WITH ULTRASOUND GUIDANCE: After discussing the details of the procedure, including the risks, the patient wished to proceed. Informed consent was obtained. A preprocedural timeout was performed to confirm the correct patient and procedure. Using aseptic technique, local lidocaine anesthetic, and ultrasound guidance throughout, a 17-gauge coaxial needle was positioned in the lesion located in the inferior and lateral aspect of the right lobe of the liver. This was the only accessible area which correlated to a region of increased uptake on the most recent PET/CT. Three passes using a 18-gauge 23mm throw core Biopince biopsy needle were performed through the coaxial needle to obtain three tissue samples of the liver lesion. The samples were placed in formalin and sent to lab for the requested studies. The needle was removed. The patient tolerated this procedure well. Following this, the patient was taken to her room on the surgical floor for continued monitoring. Impression: Technically successful core biopsy of a lesion located in the right lobe of the liver. Hayder Fuentes RPA/VIDAA performed this under my personal supervision. . Procedures Procedure Status Date Provider(s) Comprehen metabolic panel Completed 12/14/15 Assay of magnesium Completed 12/14/15 Assay of phosphorus Completed 12/14/15 Complete cbc w/auto diff wbc Completed 12/14/15 Metabolic panel total ca Completed 12/14/15 Assay of magnesium Completed 12/14/15 Assay of phosphorus Completed 12/14/15 Complete cbc w/auto diff wbc Completed 12/14/15 Complete cbc w/auto diff wbc Completed 12/14/15 Comprehen metabolic panel Completed 12/14/15 Assay of magnesium Completed 12/14/15 Assay of phosphorus Completed 12/14/15 Complete cbc w/auto diff wbc Completed 12/14/15 Comprehen metabolic panel Completed 12/14/15 Assay of magnesium Completed 12/14/15 Assay of phosphorus Completed 12/14/15 Complete cbc w/auto diff wbc Completed 12/14/15 Comprehen metabolic panel Completed 12/14/15 Assay of magnesium Completed 12/14/15 Assay of phosphorus Completed 12/14/15 Complete cbc w/auto diff wbc Completed 12/14/15 Ct thorax w/dye Completed 04/24/16 Ct abdomen w/dye Completed 04/24/16 336164"INFUSION, NORMAL SALINE SOLUTION , 250 CC" Completed 04/24/16 [id number]"LOW OSMOLAR CONTRAST MATERIAL, 300-399 MG/ML IODINE C Completed Pet image w/ct skull-thigh Completed 05/31/16 [id number]"FLUORODEOXYGLUCOSE F-18 FDG, DIAGNOSTIC, PER STUDY DO Completed Encounters Encounter Location Arrival/Admit Date Discharge/Depart Date Attending Provider Departed [facility] 06/13/16 10:41am 06/13/16 4:45pm HAYDER HAWTHORNE MD Registered [facility] 06/06/16 8:50am PETE BROWN MD Registered [facility] 05/31/16 6:16am EPTE BROWN MD Discharged [facility] 05/09/16 9:12am 06/03/16 11:41pm HUE ZUÑIGA APRN Registered [facility] 04/24/16 9:10am PETE BROWN MD Discharged [facility] 12/14/15 9:43am 05/26/16 11:59pm HUE ZUÑIGA APRN
--- OUTSIDE RECORDS SUMMARY | 2016-09-02 09:15 | XMS REPORT | Continuity of Care Document ---
Author Author [facility] Organization [facility] Address Unknown Phone Unavailable Support Name Relationship Address Phone PETE BROWN MD Caregiver [address] [place] [address] Unavailable PEBBLES RUTLEDGE MD Caregiver [address] [place] [address] Unavailable SHEREEN LOPES Next Of Kin Unknown [phone] Insurance Providers Guarantor Tanya Lopes Address [address] [place] [address] Email DENIED/NO TO PT [facility] Payer Medicaid Policy Number [id number] Subscriber's Name Tanya Lopes Relationship 18 Self Effective Date 15 Expiration Date 15 Payer Medicare Policy Number [id number] Subscriber's Name Tanya Lopes Relationship 18 Self [...] - 99.1) 11/13/2015 11:41am Temperature (Calculated Celsius) 37.40191 degrees C (36.0 - 37.3) 11/13/2015 11:41am [...] ABD & PELV 1/> REGNS Completed 09/16/15 122776"INFUSION, NORMAL SALINE SOLUTION , 250 CC" Completed 09/16/15292665"LOW OSMOLAR CONTRAST MATERIAL, 300-399 MG/ML IODINE C Completed COMP SCREEN MAMMOGRAM ADD-ON Completed 11/25/15 BREAST TOMOSYNTHESIS BI Completed 11/25/15 [id number]"SCREENING MAMMOGRAPHY, PRODUCING DIRECT DIGITAL IMAGE Completed EGD [...] Arrival/Admit Date Discharge/Depart Date Attending Provider Registered [facility] 11/25/15 9:45am PETE BROWN MD Registered [facility] 11/16/15 9:11am PETE BROWN MD Discharged Inpatient [facility] 11/12/15 2:20pm 11/13/15 4:05pm PEBBLES RUTLEDGE MD Discharged [facility] 11/11/15 9:34am 12/02/15 6:28pm PETE BROWN MD Registered [facility] 09/16/15 8:56am MIGUEL AYALA DO
--- NOTE | 2016-09-02 09:22 | NUR ---
PROVIDER DR PRADO AT BEDSIDE FOR H&P
--- NOTE | 2016-09-02 09:41 | NUR ---
LAB LAB AT BEDSIDE FOR BLOOD DRAW
[2016-09-02] MEDS ORDERED: POTA10TA14 PO (09:48)
--- NOTE | 2016-09-02 09:49 | NUR ---
RADIOLOGY PATIENT TO CT PER WC, STABLE.
[2016-09-02 09:52] LABS: HCT - HEMATOCRIT 31.6 % (36-46); HGB - HEMOGLOBIN 10.5 GM/DL (12-16); MEAN CORPUSCULAR HGB 29.2 UUG (26-34); MEAN CORPUSCULAR HGB CONC(MCHC 33.2 GM/DL (31-37); MEAN PLATELET VOLUME 8.9 UM3 (9.4-12.4); RED BLOOD COUNT 3.59 M/MM3 (4.00-5.20); WBC - WHITE BLOOD COUNT 23.8 T/MM3 (4.5-11.0)
[2016-09-02] MEDS ORDERED: LANR90SY IJ (09:52)
[2016-09-02] MEDS ORDERED: PACL100V IV (09:52)
[2016-09-02] MEDS ORDERED: PHOS250T5 PO (09:52)
[2016-09-02] MEDS ORDERED: DENO120V INJ (09:52)
[2016-09-02] MEDS ORDERED: NAPR220T61 PO (09:52)
[2016-09-02 09:55] LABS: INR 1.11 (0.76-1.04); PROTHROMBIN TIME 12.1 SEC (9.31-12.49)
--- NOTE | 2016-09-02 09:55 | NUR ---
RETURN PATIENT BACK TO ROOM FROM CT, STABLE.
[2016-09-02 10:01] LABS: ALBUMIN 4.4 G/DL (3.5-5.0); ALBUMIN/GLOBULIN RATIO 1.4 RATIO (1.1-2.2); ALKALINE PHOSPHATASE 146 U/L (38-126); ALT (SGPT) 45 U/L (9-52); ANION GAP 15 MEQ/L (5-15); AST (SGOT) 35 U/L (14-36); BUN/CREATININE RATIO 25 RATIO (6-26); CALCIUM 7.3 MG/DL (8.4-10.2); CHLORIDE 100 MEQ/L (98-107); CO2 - CARBON DIOXIDE 22 MEQ/L (22-30); CREATININE 0.6 MG/DL (0.7-1.2); GLOMERULAR FILTRATION RATE 97; GLUCOSE 129 MG/DL (65-110); POTASSIUM 3.9 MEQ/L (3.6-5); SODIUM 137 MEQ/L (134-144); TOTAL PROTEIN 7.6 G/DL (6.3-8.2)
[2016-09-02 10:12] LABS: ANISOCYTOSIS 1+; BAND NEUTROPHILS # 0.5 T/MM3; EOSINOPHILS # (MANUAL) 0.2 T/MM3 (0-0.5); LYMPHOCYTES # (MANUAL) 0.5 T/MM3 (1-4.8); NEUTROPHILS #(MANUAL)-ABSOLUTE 22.6 T/MM3 (1.8-7.7); TOTAL CELLS COUNTED 100 %
[2016-09-02 10:15] LABS: POIKILOCYTOSIS 1+
--- NOTE | 2016-09-02 10:48 | NUR ---
UPDATE PATIENT SITTING UP IN BED, VISITOR AT BEDSIDE. PATIENT HAS NO CHANGE IN SWELLING AT THIS TIME. PATIENT REPORTS THAT SHE FEELS HER VISION IS IMPROVING INTERMITTENTLY.
--- NOTE | 2016-09-02 11:08 | NUR ---
PROVIDER DR PRADO AT BEDSIDE TO DISCUSS POC
--- NOTE | 2016-09-02 11:19 | NUR ---
UPDATE PATIENT SITTING UP IN BED, VISITOR AT BEDSIDE. SWELLING INCREASING TO RIGHT AT AT THIS TIME. DR PRADO AWARE. PATIENT REPORTS NO WORSENING IN VISION AT THIS TIME. PATIENT REPORTS SHE THOUGHT HER VISION HAD BEEN IMPROVING.
[2016-09-02] MEDS ORDERED: VANCOMYCIN 1.5 G in NORMAL SALINE 500 ML IV ONE (11:30)
--- NOTE | 2016-09-02 11:53 | NUR ---
PROVIDER DR FOOTE AT BEDSIDE TO ASSESS PATIENT.
--- NOTE | 2016-09-02 12:28 | ERPDOC ---
Departure Disposition Decision Date: Sep 02, 2016 Disposition Decision Time: 12:32 Disposition: 02 TO [facility] Impression Impression Impression: Primary Impression: Orbital cellulitis, right Severity: Severe Condition: Stable Seen By: Physician only Referrals: PEBBLES RUTLEDGE MD (Family) Problems/Meds/Labs Reviewed?: Yes Medications reviewed and manag: Yes Follow up care ordered?: Yes Mental Status: Alert, Oriented [facility] General General Chief Complaint: Eye Problems Stated Complaint: RIGHT EYE SWOLLEN Time Seen by Provider: 09:27 [facility] General Initial Comments 75 yo female with right eye swelling, onset overnight. She noticed a headache with concentration of pain behind right eye. Pain worsened overnight, hopefully this morning she came to the ED for evaluation. She has a history of breast cancer metastatic to liver. Allergies: Coded Allergies: tramadol (Verified Allergy, Severe, CRAMPING /RASH/ ITCHING, 09/02/16) adhesive (Verified Allergy, Unknown, RASH, 09/02/16) "CERTAIN KINDS OF TAPE" Past History Past Medical History Metabolic: cancer, hypertension Surgical History Reproductive/: other Family History Family PMH: FOUND: [place], diabetes, hypertension Vaccines Hx Influenza Vaccination: Yes (APR 2016) Hx Pneumococcal Vaccination: Yes (05/2016) Social History Smoking Status: Never smoker Does patient use chewing tobac: No Substance Use Type: does not use Record Review Pertinent history updated: Yes Review of Systems Eyes General: see HPI Lids/Accessories: see HPI Vision: see HPI ENMT Sinuses: see HPI Physical Exam General General Nourishment: well nourished, well developed, appears stated age Distress Description Right eye is bulging Vitals and Pain First Documented Vital Signs Date Time Temp Pulse Resp B/P Pulse Ox O2 Delivery O2 Flow Rate FiO2 09/02/16 09:12 98.3 100 16 172/78 98 Room Air Weight: Kilograms: 69.000 Height (feet): 4 Height (inches): 10.00 Triage Pain Scale: Normal Exams: Neck: Full range of motion, without adenopathy, JVD, bruits or thyromegaly Chest/Resp: Clear all lombardo, with good airflow, and symmetry bilaterally CV: Regular rate and rhythm, without murmur or gallop, Pulses 2+ all extremities, capillary refill, <2 seconds all ext., no pedal edema noted Neurologic: Patient is alert, and oriented, cranial nerves, motor/sensory/ cerebellar, exams w/o gross deficits, to observation Psychiatric: Patient exhibits, appropriate attention, emotion and affect Eyes (brief) Comments Right eye with conjunctival edema under pupil, I is bulging outward with obvious proptosis. Pupils reactive to light, patient has some pain on lateral gaze vision is appropriate, no diplopia Differential Diagnoses Considering: Conjunctival Foreign Body, Conjunctivitis, Other (orbital cellulitis) Progress Results/Orders Orders Procedure Category Date Status Time Ct Orbits W/O Contrast CT 09/02/16 Taken Cbc W/Auto LAB 09/02/16 Complete Diff-Reflex Manual Cmp - Comprehensive LAB 09/02/16 Complete Metabolic C-Reactive Protein - LAB 09/02/16 Complete CRP 09:27 INR LAB 09/02/16 Complete Nasopharyngeal Culture GUSTAVO 09/02/16 Logged 11:30 Lactate - Lactic Acid LAB 09/02/16 Complete 11:30 Blood Culture GUSTAVO 09/02/16 Logged 11:30 Procalcitonin LAB 09/02/16 In Process 11:30 Iv Lock (Ed Only) EDM 09/02/16 Transmitted 11:30 Ua, Dip Wreflex LAB 09/02/16 Logged Micro[employer] Dyeing Machine Tender 11:30 Vancomycin (Vancocin) PHA 09/02/16 In Process 11:30 Pharmacy Consult CONS 09/02/16 Transmitted 11:30 Levofloxacin 750 Mg PHA 09/02/16 In Process Ivpb (Levaquin 750 M 11:30 Pharmacy Consult CONS 09/02/16 Transmitted 11:30 Piperacillin/Tazobactam PHA 09/02/16 In Process (Zosyn) 15:00 Place In Facility: ED ADM 09/02/16 Verified Up In Room With Assist CHARLA 09/02/16 Verified 12:19 Regular Diet DIET 09/02/16 Verified Dinner Compression Type Scd/ CHARLA 09/02/16 Verified Jose Juan Hose 12:19 Zosyn 3.375g Iv PHA 09/02/16 Verified Piggyback 15:00 Lab Results Laboratory Tests Test 09/02/16 09:44 09/02/16 09:45 09/02/16 11:54 White Blood Count 23.8T/MM3 Red Blood Count 3.59M/MM3 Hemoglobin 10.5GM/DL Hematocrit 31.6% Mean Corpuscular Volume 88.0UM3 Mean Corpuscular Hemoglobin 29.2UUG Mean Corpuscular Hemoglobin Concent 33.2GM/DL RDW Standard Deviation 78.9FL Platelet Count 284T/MM3 Mean Platelet Volume 8.9UM3 Immature Granulocyte % (Auto) % Neutrophils (%) (Auto) % Lymphocytes (%) (Auto) % Monocytes (%) (Auto) % Eosinophils (%) (Auto) % Basophils (%) (Auto) % Absolute Immature Granulocyte (auto T/MM3 Absolute Neutrophils (auto) T/MM3 Absolute Lymphocytes (auto) T/MM3 Absolute Monocytes (auto) T/MM3 Absolute Eosinophils (auto) T/MM3 Absolute Basophils (auto) T/MM3 Neutrophils % (Manual) 95.0% Band Neutrophils % 2.0% Lymphocytes % (Manual) 2.0% Eosinophils % (Manual) 1.0% Absolute Neutrophils (Manual) 22.6T/MM3 Band Neutrophils # 0.5T/MM3 Lymphocytes # (Manual) 0.5T/MM3 Eosinophils # (Manual) 0.2T/MM3 Poikilocytosis 1+ Anisocytosis 1+ Red Cell Morphology Comment Abnormal Turbidity < 20 Sodium Level 137MEQ/L Potassium Level 3.9MEQ/L Chloride Level 100MEQ/L Carbon Dioxide Level 22MEQ/L Anion Gap 15MEQ/L Blood Urea Nitrogen 15.0MG/DL Creatinine 0.6MG/DL Glomerular Filtration Rate Calc 97 BUN/Creatinine Ratio 25RATIO Glucose Level 129MG/DL Calculated Osmolality 267MOSM/KG Calcium Level 7.3MG/DL Total Bilirubin 1.20MG/DL Icterus Index < 2 Aspartate Amino Transf (AST/SGOT) 35U/L Alanine Aminotransferase (ALT/SGPT) 45U/L Alkaline Phosphatase 146U/L Total Protein 7.6G/DL Albumin 4.4G/DL Globulin 3.2G/DL Albumin/Globulin Ratio 1.4RATIO Chemistry Specimen Hemolysis < 15 Prothromb Time International Ratio 1.11 C-Reactive Protein 9.3MG/L Plasma Lactate 0.8MMOL/L Procalcitonin Pending Medications Current ED Medications Vancomycin HCl 1.5 g/Sodium Chloride 500 ml @ 250 mls/hr O ONCE IV ; Start 09/02/16 at 11:30; Stop 09/02/16 at 13:29 Levofloxacin 750 mg/Dextrose/Water 150 ml @ 100 mls/hr Q24H IV ; Start 09/02/16 at 11:30 Piperacillin Sod/ Tazobactam Sod/ Sodium Chloride (Zosyn/NS) 100 ml @ 200 mls/ hr Q6HR IV ; Start 09/02/16 at 15:[address] of orbit shows right eye proptosis with debris and fluid in sinus. White count is elevated at 23,000, patient is on marrow stimulating medications due to active chemotherapy at this time. Dr. Witt was not on-call, but was gracious enough to respond and assist with care of this patient. He did come in and evaluate the patient. After reviewing labs and visiting with the patient he felt like this ought to be treated as an orbital cellulitis due to her history of immunosuppression and the risk of mortality from orbital cellulitis. However the plan will ultimately be that if cultures are negative and/or patient is determined not to have orbital cellulitis, steroids may be used for an orbital inflammatory process. Dr. Ronquillo agreed to admit the patient to hospitalist service, Dr. Witt will be on consult. LIO PRADO MD Sep 02, 2016 12:28
--- NOTE | 2016-09-02 12:45 | NUR ---
REPORT REPORT GIVEN TO MADELINE WARNER ON MEDICAL UNIT.
--- NOTE | 2016-09-02 12:46 | NUR ---
REPORT THIS NURSE RECEIVED REPORT FROM HORTENCIA WARNER AT THIS TIME, NO CONCERNS AT THIS TIME.
--- NOTE | 2016-09-02 12:55 | NUR ---
ADMISSION NOTE PT. TAKEN TO ROOM 136 PER WHEELCHAIR WITH IV FLUIDS CONTINUING.
--- NOTE | 2016-09-02 12:55 | NUR ---
ADMIT PT ADMITTED BY WHEELCHAIR TO ROOM 136 AT THIS TIME. PT ALERT AND ORIENTED X3. PT ON RA, DENIES SOA. DENIES PAIN, DENIES N/V AT THIS TIME. WILL CONTINUE TO MONITOR.
[2016-09-02] MEDS ORDERED: PIPERACILLIN/TAZOBACTAM 3.38 G in NORMAL SALINE 100 ML IV SCH (13:00)
[2016-09-02 13:04] VITALS: Ht 147.3 cm; Wt 66.6 kg
[2016-09-02 13:10] VITALS: BP 130/66; PULSE 75; RESP 16; TEMP 97.8; O2SAT 98
[2016-09-02] MEDS: LEVOFLOXACIN 750 mg IVPB 750 MG in D5W 150 ML IV SCH (13:22)
[2016-09-02] MEDS: NORMAL SALINE 500 ML IV PRN (13:24)
--- NOTE | 2016-09-02 14:26 | ERNOTEF ---
DATE OF EMERGENCY ROOM CONSULTATION 09/02/16 DIAGNOSIS Orbital cellulitis. CHIEF COMPLAINT Right eye swelling. HISTORY OF PRESENT ILLNESS The patient first noticed a headache yesterday and then when she woke up this morning noticed that her right eye was protruding and she had painful movements when she looks to the right along with swelling of the conjunctiva. She says her vision is normal and has noticed no change in that. PAST MEDICAL HISTORY 1. Breast cancer with metastasis to the liver being treated by Dr. Wells with chemotherapy. A couple of days ago she received medication to stimulate her white blood cell count. PHYSICAL EXAMINATION EYES: Pupils are equal and reactive to light. No Noel Gisela. Lids are clear without swelling. Conjunctivae boggy, watery swelling of the conjunctivae. EOMs limited adduction with double vision. VITAL SIGNS: No fever. ASSESSMENT Orbital cellulitis versus orbital inflammatory syndrome. A CT scan shows enlargement of the medial rectus and more prominently the lateral rectus with involvement of the tendon all the way to the globe. The surrounding sinuses look pretty good except there is some fluid in the right frontal sinus and a slight amount of symmetrical fluid in the frontal sinuses and some in the ethmoid sinuses which is also symmetrical. The patient has not complained about nasal discharge but did have a cold two weeks ago requiring antibiotic therapy. Dr. Wells was consulted and it was felt that the [place] decision would be to admit her for 24 hours and to treat her as if she has an infectious orbital cellulitis just because she is immunosuppressed. If we were to treat her as an orbital inflammatory syndrome and gave her prednisone and she had an infection this could be quite dangerous. PLAN 1. Admit her to the hospital, treat her with IV Zosyn and Vancomycin and follow her clinical course. 2. If after 24 hours she has no progression of her disease or no improvement then we could consider doing prednisone to treat her as an orbital inflammatory syndrome. SOURAV
[2016-09-02] MEDS ORDERED: LACRI-LUBE EYE OINT 3.5 G TUBE RIGHT EYE PRN (14:30)
[2016-09-02] MEDS ORDERED: MAG-AL + SIM LIQUID 30 ML UDC PO PRN (14:30)
[2016-09-02] MEDS ORDERED: ONDANSETRON 4mg/2ml INJECTION IV PRN (14:30)
[2016-09-02] MEDS ORDERED: PRN ORDERS MC (14:30)
[2016-09-02] MEDS ORDERED: ACETAMINOPHEN 325 MG TABLET PO PRN (14:30)
[2016-09-02] MEDS ORDERED: MILK OF MAGNESIA 30 ML SUSP PO PRN (14:30)
[2016-09-02] MEDS ORDERED: NAPROXEN 220 MG TABLET PO PRN (14:30)
[2016-09-02] MEDS ORDERED: BISACODYL 10 MG SUPPOSITORY RECTALLY PRN (14:30)
[2016-09-02] MEDS ORDERED: NITROGLYCERIN 0.4 MG SUBLINGUAL TABLET SL PRN (14:30)
--- NOTE | 2016-09-02 14:33 | HPPDOC ---
NAVIN MARISCAL WALLPAPERER HELPER 09/02/16 1413: HPI - Adult Date DATE: 09/02/16 TIME: 14:07 General Chief Complaint: Right eye pain and swelling History of Present Illness HPI - EENT General Initial Comments 75 yo female with right eye swelling, onset overnight. She noticed a headache with concentration of pain behind right eye. Pain worsened overnight, hopefully this morning she came to the ED for evaluation. She has a history of breast cancer metastatic to liver. Progress CT of orbit shows right eye proptosis with debris and fluid in sinus. White count is elevated at 23,000, patient is on marrow stimulating medications due to active chemotherapy at this time. Dr. Witt was not on-call, but was gracious enough to respond and assist with care of this patient. He did come in and evaluate the patient. After reviewing labs and visiting with the patient he felt like this ought to be treated as an orbital cellulitis due to her history of immunosuppression and the risk of mortality from orbital cellulitis. However the plan will ultimately be that if cultures are negative and/or patient is determined not to have orbital cellulitis, steroids may be used for an orbital inflammatory process. Dr. Ronquillo agreed to admit the patient to hospitalist service, Dr. Witt will be on consult. HPI: Hospitalist: Enrike is a very pleasant 75 yo WF who presented to the ED due to right eye pain and swelling. She reports that she did experience a right sided WHITE yesterday, and was seen at the cancer center for scheduled injection. She did take some Aleve for the headache, which resolved the pain. Unfortunately, she did wake up with some pain and swelling in the right eye. This has gotten progressively worse through the day. She was seen in the ED as detailed above, and Dr. Ronquillo did discuss the case with Dr. Witt. Patient reports that she has not been having any chronic headaches. No specific vision changes, but does endorse some vision changes when she gazes right. No memory changes. She is dealing with two types of cancer, and is currently in treatment for metastatic breast cancer to the liver. She was initially diagnosed in 2010, follows with Dr. Wells. Denies any fever or chills. No cough, SOA, abdominal pain, etc. 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) GI bleed from tumor HTN Iron deficiency anemia Osteoarthritis HLD Surgical History Patient's Surgical History: Left radical mastectomy Colon resection x 2 Bilateral cataract Power Port placement Current Medications Home Meds Reported Medications Naproxen Sodium (Aleve) 220 Mg Tablet, 440 MG PO BIDWM Y for PAIN 09/02/16 Phosphorus #1 (Phospha 250 Neutral Tablet) 250 Mg Tablet, 250 MG PO BID 09/02/16 Paclitaxel Protein-Bound (Abraxane) 100 Mg Vial, 1 DOSE IV 09/02/16 Denosumab (Xgeva) 120 Mg/1.7 Ml Vial, 120 MG INJ [id number] 09/02/16 Lanreotide Acetate (Somatuline Depot) 90 Mg/0.3 Ml Syringe, 1 DOSE IJ [id number] 09/02/16 Potassium Chloride (Potassium Chloride) 10 Meq Tablet.er, 20 MG PO WB 09/02/16 Losartan/Hydrochlorothiazide (Losartan-Hctz 100-25 mg Tab) 1 Each Tablet, 1 TAB PO DAILY 11/11/15 Amlodipine Besylate (Amlodipine Besylate) 10 Mg Tablet, 10 MG PO DAILY 11/11/15 Calcium Carbonate/Vitamin D3 (Calcium + D 600 Mg Tablet) 1 Tab Tablet, 1 TAB PO BID 09/16/13 Cholecalciferol (Vitamin D3) (Vitamin D3) 2,000 Unit Capsule, 2000 UNIT PO DAILY 09/16/13 Glucosamine Sulfate 2KCL (Glucosamine) 1,000 Mg Tablet, 2000 MG PO DAILY 08/15/13 Allergies: Coded Allergies: tramadol (Verified Allergy, Severe, CRAMPING /RASH/ ITCHING, 09/02/16) adhesive (Verified Allergy, Unknown, RASH, 09/02/16) "CERTAIN KINDS OF TAPE" Family History Family History: Dad- Alzheimers, pacer placed (may age 82) Mom- Renal failure (may age 89) Son- of colon cancer Brothers-4- mostly heart disease Social History Smoking Status: Never smoker Does patient use chewing tobac: No Substance Use Type: does not use Marital Status: Current Occupational Status: retired Advance Directives: No DPOA for Healthcare Only Review of Systems Constitutional: DENIES: chills, fever, weakness Eyes General: REPORTS: erythema, exudate, pain, watering Lids/Accessories: REPORTS: alopecia lashes/eyebrows, erythema, eye protrusion, swelling Vision: REPORTS: blurring, double vision ENMT Ears: DENIES: pain Hearing: DENIES: hearing loss, tinnitus Balance: DENIES: vertigo Nose: NOT FOUND: change in smell Mouth/Throat: DENIES: pain ENMT Teeth: DENIES: pain Cardiovascular DENIES: chest pain, dyspnea on exertion, murmur, orthopnea Rhythm/Rate: DENIES: tachycardia Vascular: DENIES: pedal edema Pulmonary Respiratory: DENIES: cough, dyspnea, pleuritic chest pain GI Upper Abdomen: DENIES: dysphagia, nausea, pain, vomiting Lower Abdomen: DENIES: constipation General: DENIES: dysuria Musculoskeletal General: DENIES: pain, tenderness, weakness Integumentary Hair: alopecia Neurological General: headache, DENIES: blindness, dysarthria, memory disturbances, poor coordination, seizures, tremor Hematologic/Lymphatic anemia All Other Systems All Other Systems: Reviewed (remainder of 10-point ROS Neg.) Physical Exam General General Nourishment: well nourished, well developed, apparent age General Body Habitus: well groomed (Chronic alopecia) Vital Signs Vital Signs Date Time Temp Pulse Resp B/P Pulse Ox O2 Delivery O2 Flow Rate FiO2 09/02/16 13:10 97.8 75 16 130/66 98 Room Air Height (Feet): 4 Height (Inches): 10.00 Eyes Brief: FOUND: PERRL Comments Right eye ptosis; Significant scleral edema, conjunctival and scleral redness. Protrusion of sclera significant. ENMT Brief: FOUND: mucosa moist, normal dentition Neck Brief: FOUND: midline, NOT FOUND: JVD, nuchal rigidity, spasm, tenderness Respiratory Brief: FOUND: clear all lombardo, equal bilaterally, symmetrical, NOT FOUND: rales, wheezes Cardiovascular (brief) Cardiac Brief: FOUND: regular rate, regular rhythm, NOT FOUND: murmur, pedal edema Abdomen (brief) Abdominal Brief: FOUND: BS normo active x4, soft, tender, NOT FOUND: distended Lymphatic (brief) Lymphatic Brief: NOT FOUND: adenopathy, lymphedema Musculoskeletal (brief) Musculoskeletal Brief: NOT FOUND: deformity, spasm, tenderness Integumentary (brief) Integumentary Brief: FOUND: dry, warm Neurologic RN Documented GCS Eye Opening: Verbal: Motor: Total: Psychiatric (brief) FOUND: alert, attentive, oriented Laboratory Laboratory Tests Test 09/02/16 09:44 09/02/16 09:45 09/02/16 11:54 White Blood Count 23.8T/MM3 Red Blood Count 3.59M/MM3 Hemoglobin 10.5GM/DL Hematocrit 31.6% Mean Corpuscular Volume 88.0UM3 Mean Corpuscular Hemoglobin 29.2UUG Mean Corpuscular Hemoglobin Concent 33.2GM/DL RDW Standard Deviation 78.9FL Platelet Count 284T/MM3 Mean Platelet Volume 8.9UM3 Immature Granulocyte % (Auto) % Neutrophils (%) (Auto) % Lymphocytes (%) (Auto) % Monocytes (%) (Auto) % Eosinophils (%) (Auto) % Basophils (%) (Auto) % Absolute Immature Granulocyte (auto T/MM3 Absolute Neutrophils (auto) T/MM3 Absolute Lymphocytes (auto) T/MM3 Absolute Monocytes (auto) T/MM3 Absolute Eosinophils (auto) T/MM3 Absolute Basophils (auto) T/MM3 Neutrophils % (Manual) 95.0% Band Neutrophils % 2.0% Lymphocytes % (Manual) 2.0% Eosinophils % (Manual) 1.0% Absolute Neutrophils (Manual) 22.6T/MM3 Band Neutrophils # 0.5T/MM3 Lymphocytes # (Manual) 0.5T/MM3 Eosinophils # (Manual) 0.2T/MM3 Poikilocytosis 1+ Anisocytosis 1+ Red Cell Morphology Comment Abnormal Turbidity < 20 Sodium Level 137MEQ/L Potassium Level 3.9MEQ/L Chloride Level 100MEQ/L Carbon Dioxide Level 22MEQ/L Anion Gap 15MEQ/L Blood Urea Nitrogen 15.0MG/DL Creatinine 0.6MG/DL Glomerular Filtration Rate Calc 97 BUN/Creatinine Ratio 25RATIO Glucose Level 129MG/DL Calculated Osmolality 267MOSM/KG Calcium Level 7.3MG/DL Total Bilirubin 1.20MG/DL Icterus Index < 2 Aspartate Amino Transf (AST/SGOT) 35U/L Alanine Aminotransferase (ALT/SGPT) 45U/L Alkaline Phosphatase 146U/L Total Protein 7.6G/DL Albumin 4.4G/DL Globulin 3.2G/DL Albumin/Globulin Ratio 1.4RATIO Chemistry Specimen Hemolysis < 15 Prothromb Time International Ratio 1.11 C-Reactive Protein 9.3MG/L Plasma Lactate 0.8MMOL/L Procalcitonin 0.07NG/ML Radiology CT of the head reviewed. [facility] at [facility]. No Brain imaging on file. Last PET scan- no concern for skull involvement. 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 Witt in the ED. Concerning for cellulitis. Continue Zosyn Levaquin Vanco per Dr. Ronquillo. Lacrilube every 2 hours to prevent corneal abrasions. I have discussed with pt. that we may need to get an MRI of the brain-R/O mets or other acute insult of the ocular blood flow. She does not want to pursue an MRI at this point due to severe anxiety. If no improvement by tomorrow, may decide to proceed. *HTN- Resume home medications and monitor. 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 Wells. Recent injections to support leukocyte production- Monitor WBC count. Assess ESR to R/O occult vasculitis. CRP elevated. *Chronic anemia- CBC recheck in AM. *Hx. anticoagulation- no longer on Warfarin. Code Status Full Code Hospital Course Summary Disclaimer The hospital course summary below is not to be considered part of the above Progress Note. Hospital Course Summary 09/02/16- Jason *Right Orbital Edema and severe scleral edema- Seen by Dr. Witt in the ED. Concerning for cellulitis. Continue Zosyn, Levaquin, Vanco per Dr. Ronquillo. Lacrilube every 2 hours to prevent corneal abrasions. I have discussed with pt. that we may need to get an MRI of the brain-R/O mets or other acute insult of the ocular blood flow. She does not want to pursue an MRI at this point due to severe anxiety. If no improvement by tomorrow, may decide to proceed. *HTN- Resume home medications and monitor. 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 Wells. Recent injections to support leukocyte production- Monitor WBC count. Assess ESR to R/O occult vasculitis. CRP elevated. *Chronic anemia- CBC recheck in AM. *Hx. anticoagulation- no longer on Warfarin. LOUIS RONQUILLO MD 09/02/16 3809: Past Medical History Current Medications Home Meds Reported Medications Naproxen Sodium (Aleve) 220 Mg Tablet, 440 MG PO BIDWM Y for PAIN 09/02/16 Phosphorus #1 (Phospha 250 Neutral Tablet) 250 Mg Tablet, 250 MG PO BID 09/02/16 Paclitaxel Protein-Bound (Abraxane) 100 Mg Vial, 1 DOSE IV 09/02/16 Denosumab (Xgeva) 120 Mg/1.7 Ml Vial, 120 MG INJ [id number] 09/02/16 Lanreotide Acetate (Somatuline Depot) 90 Mg/0.3 Ml Syringe, 1 DOSE IJ [id number] 09/02/16 Potassium Chloride (Potassium Chloride) 10 Meq Tablet.er, 20 MG PO WB 09/02/16 Losartan/Hydrochlorothiazide (Losartan-Hctz 100-25 mg Tab) 1 Each Tablet, 1 TAB PO DAILY 11/11/15 Amlodipine Besylate (Amlodipine Besylate) 10 Mg Tablet, 10 MG PO DAILY 11/11/15 Calcium Carbonate/Vitamin D3 (Calcium + D 600 Mg Tablet) 1 Tab Tablet, 1 TAB PO BID 09/16/13 Cholecalciferol (Vitamin D3) (Vitamin D3) 2,000 Unit Capsule, 2000 UNIT PO DAILY 09/16/13 Glucosamine Sulfate 2KCL (Glucosamine) 1,000 Mg Tablet, 2000 MG PO DAILY 08/15/13 Allergies: Coded Allergies: tramadol (Verified Allergy, Severe, CRAMPING /RASH/ ITCHING, 09/02/16) adhesive (Verified Allergy, Unknown, RASH, 09/02/16) "CERTAIN KINDS OF TAPE" Assessment & Plan Problems: (1) Orbital cellulitis, right Status: Acute Assessment & Plan: Orbital inflammatory syndrome. (2) Leukocytosis Status: Acute Assessment & Plan: Infection vs medication induced. 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 Case discussed with ED physician , Dr Witt, and my WALLPAPERER HELPER. Care plan developed with my supervision; agree with above. Woke up with morning with fullness and discomfort to right eye. Not able to see out of eye. Had WHITE last night. No f/c. No SOA, cough, congestion. Denies chest pain or palpitations. Eating well. No n/v. No urinary c/o. On chemo. Recently reviewed medication to boost her WBC. HEENT: right eye with decreased ROM and erythematous. Lungs: clear bilaterally CV: regular AB: soft nt/nd +BS MSE: awake alert appropriate Plan: OBS. Vanco and Zosyn for antimicrobial coverage. Monitor Blood counts. Consult with Dr Witt. Potentially needing steroids to decrease orbital inflammation. SCD for DVT prevention. Zofran prn nausea. DVT Prophylaxis: SCD'S NAVIN MARISCAL WALLPAPERER HELPER Sep 02, 2016 14:13 LOUIS RONQUILLO MD Sep 02, 2016 16:24
[2016-09-02 15:00] VITALS: PULSE 75; RESP 16; O2SAT 97
[2016-09-02] MEDS ORDERED: PIPERACILLIN/TAZOBACTAM 3.375 G in NORMAL SALINE 100 ML IV SCH ×4 (15:00)
[2016-09-02] MEDS: LACRI-LUBE EYE OINT 3.5 G TUBE RIGHT EYE SCH ×4 (15:23→20:40)
--- NOTE | 2016-09-02 15:23 | NUR ---
VANCOMYCIN CONSULT: 75 y.o. Female with R eye swelling and pain behind R eye. Patient is immunosuppressed secondary to cancer treatment with chemotherapy. Zosyn, Levaquin and Vancomycin started for empiric coverage of orbital cellulitis. Pharmacy consulted to manage Vancomycin. Goal Vanco trough = 15- 20 mcg/ml. Current Renal Fx: SCr = 0.6 mg/dl. Will give Vancomycin 1,500 mg IV q24hrs. Will continue to monitor and adjust regimen to maintain therapeutic levels. Thank you for the protocol, Amanda Giron RPh
[2016-09-02 15:32] VITALS: BP 118/68; PULSE 79; RESP 16; TEMP 96.6; O2SAT 98
[2016-09-02] MEDS: PIPERACILLIN/TAZOBACTAM 3.375 G in NORMAL SALINE 100 ML IV SCH (17:38)
--- NOTE | 2016-09-02 18:37 | NUR ---
SHIFT SUMMARY PT ALERT AND ORIENTED X3. PT ON RA, DENIES SOA. DENIES PAIN, DENIES N/V. PT REPORTS BLURRED VISION TO RIGHT EYE, DENIES DISCOMFORT. PT EXPRESSES UNDERSTANDING OF NOT TOUCHING EYE TO HELP WITH PROTECTION. EDEMA AND REDNESS REMAIN, EYE WEEPS OCCASIONALLY. UP WITH ASSIST X1, CANE TO RESTROOM. UP IN RECLINER FOR MEALS. ADEQUATE URINE OUTPUT, BM THIS SHIFT. IVL RIGHT CHEST PAC PATENT, ABLE TO ASPIRATE. PT EXPRESSES UNDERSTANDING OF SHIFTING WEIGHT TO PREVENT SKIN BREAKDOWN. PT ABLE TO MAKE NEEDS KNOWN. CALL LIGHT WITHIN REACH.
[2016-09-02 20:00] VITALS: RESP 16
[2016-09-02] MEDS: PHOSPHORUS 250 MG PO SCH (20:39)
[2016-09-02 23:10] VITALS: BP 107/61; PULSE 66; RESP 18; TEMP 96.2; O2SAT 95
[2016-09-03] MEDS: PIPERACILLIN/TAZOBACTAM 3.375 G in NORMAL SALINE 100 ML IV SCH ×5 (00:25→23:18)
[2016-09-03] MEDS: LACRI-LUBE EYE OINT 3.5 G TUBE RIGHT EYE SCH ×13 (00:25→23:17)
--- NOTE | 2016-09-03 01:42 | NUR ---
Chart Check 24 hour chart check completed
[2016-09-03 04:29] LABS: HCT - HEMATOCRIT 25.9 % (36-46); HGB - HEMOGLOBIN 8.3 GM/DL (12-16); MEAN CORPUSCULAR HGB 28.4 UUG (26-34); MEAN CORPUSCULAR VOLUME 88.7 UM3 (80-100); MEAN PLATELET VOLUME 9.1 UM3 (9.4-12.4); RED BLOOD COUNT 2.92 M/MM3 (4.00-5.20); WBC - WHITE BLOOD COUNT 14.3 T/MM3 (4.5-11.0)
[2016-09-03 04:49] LABS: ALBUMIN 3.4 G/DL (3.5-5.0); ALBUMIN/GLOBULIN RATIO 1.3 RATIO (1.1-2.2); ALKALINE PHOSPHATASE 127 U/L (38-126); ALT (SGPT) 47 U/L (9-52); ANION GAP 8 MEQ/L (5-15); AST (SGOT) 33 U/L (14-36); BUN/CREATININE RATIO 21 RATIO (6-26); CALCIUM 6.6 MG/DL (8.4-10.2); CHLORIDE 103 MEQ/L (98-107); CO2 - CARBON DIOXIDE 25 MEQ/L (22-30); CREATININE 0.7 MG/DL (0.7-1.2); GLOMERULAR FILTRATION RATE 81; GLUCOSE 121 MG/DL (65-110); MAGNESIUM 1.6 MG/DL (1.6-2.3); POTASSIUM 4.5 MEQ/L (3.6-5); SODIUM 136 MEQ/L (134-144)
[2016-09-03 05:53] LABS: ANISOCYTOSIS 1+; BAND NEUTROPHILS # 1.6 T/MM3; BASOPHILS # (MANUAL) 0.1 T/MM3 (0-0.2); HYPOCHROMASIA 1+; LYMPHOCYTES # (MANUAL) 0.4 T/MM3 (1-4.8); MONOCYTES # (MANUAL) 0.4 T/MM3 (0-0.8); NEUTROPHILS #(MANUAL)-ABSOLUTE 11.7 T/MM3 (1.8-7.7); POIKILOCYTOSIS 1+; TOTAL CELLS COUNTED 100 %
--- NOTE | 2016-09-03 06:38 | NUR ---
SUMMARY AWAKE MOST OF THE NIGHT. REPORTS MINIMAL DISCOMFORT WITH EYE. EYE REMAINS VERY EDEMATOUS. PATIENT STATES, "FEELS LIKE THE SWELLING HAS DECREASED." UP TO THE BATHROOM WITH STAND BY ASSIST. SITTING UP IN THE CHAIR THIS AM. WILL CONTINUE TO MONITOR.
[2016-09-03 07:30] VITALS: BP 121/65; PULSE 61; RESP 16; TEMP 98.2; O2SAT 96
--- NOTE | 2016-09-03 07:30 | NUR ---
BEGINNING OF SHIFT PT IS AWAKE AND A&OX3, DENIES ANY PAIN TO HER R EYE. REDNESS/SWELLING AND TEARING NOTED. STATES HER VISION SEEMS BETTER TODAY BECAUSE SHE DOES NOT HAVE ANY DOUBLE VISION ANYMORE. DENIES ANY NEEDS AT THIS TIME.
[2016-09-03 08:00] VITALS: RESP 16
--- NOTE | 2016-09-03 09:58 | DI ---
Indication: ITS.REASON: right eye swelling PROCEDURE: CT ORBITS W/O CONTRAST: Encounter: Initial Comparison: None Technique: Axial CT images were performed through the orbits without intravenous contrast. Coronal and sagittal two-dimensional reformats. Automated Exposure Control and Iterative Reconstruction dose reducing techniques were utilized. Findings: No acute orbital fracture identified. There is moderate to severe proptosis of the right glob. Thickening of the right lateral rectus muscle and slight enlargement of the medial rectus muscle on the right. No mass effect upon the optic nerves however. There is preseptal soft tissue swelling and inflammation as well. No definite intraconal inflammatory change. No intraocular or intraorbital hematoma. Mild sinus mucosal thickening in the right maxillary, sphenoid and ethmoid sinuses along with the right frontal sinus with bubbly secretions. Impression: 1. Proptosis of the right globe with extraocular muscular swelling could be due to orbital cellulitis, intramuscular hemorrhage or orbital pseudotumor. Recommend emergent ophthalmologic evaluation. Less likely considerations include orbital lymphoma or hyperthyroid disease related orbital involvement. 2. Reed sinusitis. There is a preliminary report by [facility]. .
[2016-09-03] MEDS: LOSARTAN PO SCH (10:15)
[2016-09-03] MEDS: PHOSPHORUS 250 MG PO SCH ×2 (10:15→20:20)
[2016-09-03] MEDS: --POM--POTASSIUM CHLORIDE 10 MEQ TABLET PO SCH (10:15)
[2016-09-03] MEDS: --POM--AMLODIPINE 10 MG TABLET PO SCH (10:15)
[2016-09-03] MEDS: HCTZ PO SCH (10:15)
[2016-09-03] MEDS: VANCOMYCIN 1,500 MG in NORMAL SALINE 500 ML IV SCH (10:19)
[2016-09-03] MEDS: LEVOFLOXACIN 750 mg IVPB 750 MG in D5W 150 ML IV SCH (12:35)
[2016-09-03 12:54] LABS: BLOOD, URINE TRACE-INTACT (NEGATIVE); COLOR,URINE YELLOW (YELLOW); LEUKOCYTE ESTERASE ,URINE NEGATIVE (NEGATIVE); NITRITE,URINE NEGATIVE (NEGATIVE); UROBILINOGEN,URINE 0.2 EU/DL (NORMAL)
--- NOTE | 2016-09-03 13:53 | CONSF ---
DATE OF CONSULTATION 09/03/2016 SUBJECTIVE Feeling about the same, maybe slightly better. She reports that she just had ointment placed in her right eye by the nurse. Vision seems stable. OBJECTIVE VISION: 20/40 OD and 20/30 OS. LIDS: Slightly proptotic. CONJUNCTIVA: Clear, watery swelling of the conjunctiva mostly above the right lower lid. CORNEA: Grossly clear. PUPILS: Equal, round, and reactive to light. Extraocular movements limited abduction OD. ASSESSMENT Orbital cellulitis versus orbital inflammatory syndrome. The improvement of the right eye seems amenable and yet she still does not have any evidence of optic nerve compression. PLAN Discussed with Dr. Ronquillo to consider starting oral prednisone to treat this as if it is orbital inflammatory syndrome along with the IV antibiotics. Careful observation would be required to be sure that it does not get worse after starting the oral prednisone. SOURAV
--- NOTE | 2016-09-03 14:00 | NUR ---
UROSTOMY PT CALLED FOR HELP AND SAID SHE FELT HER BACK WAS WET. WHEN IT WAS ASSESSED AND DRESSING WAS REMOVED CATHETER WAS OUT OF SITE COMPLETELY. DR JHA WAS NOTIFIED, HE ORDERED TO PLACE CATHETER BACK IN. CATHETER WAS PLACED BACK IN AND BALLOON WAS REINFLATED. URINE DRAINING IN UROSTOMY BAG AT THIS TIME. WILL CONTINUE TO MONITOR.
--- NOTE | 2016-09-03 15:26 | PNPDOC ---
Subjective Date DATE: 09/03/16 TIME: 15:19 Subjective F/U: Orbital cellulitis vs Optic inflammatory syndrome. Doing a little better. Vision still off-hard to read with visual changes. No WHITE or eye pain. Denies nausea. No f/c. Breathing well. No chest pressure or pain. Denies ab pain-stool moving, slightly loose. No mouth pain or discomfort. Objective Vital Signs Vital signs Vital Signs Date Time Temp Pulse Resp B/P Pulse Ox O2 Delivery O2 Flow Rate FiO2 09/03/16 08:00 16 09/03/16 07:30 98.2 61 121/65 96 Room Air Height (Feet): 4 Height (Inches): 10.00 Weight (Kilograms): 68.900 General General Appearance: Alert, Obese, Orientated x 3, Well Nourished, Well Developed, Cooperative, Looks Stated Age Eyes (Brief) Eyes: NOT FOUND: EOMI (decreased right occuar movement, improving from yesterday. ), scleral icterus ENMT (Brief) ENMT: FOUND: hearing intact, mucosa moist (No thrush ) Neck (Brief) Neck: FOUND: midline, NOT FOUND: nuchal rigidity, spasm Respiratory (Brief) Respiratory: FOUND: clear all lombardo, equal bilaterally, NOT FOUND: rales, wheezes Cardiovascular (Brief) Cardiac: FOUND: regular rate, regular rhythm, NOT FOUND: pedal edema Abdomen (Brief) Abdominal: FOUND: BS normo active x4, soft, NOT FOUND: distended, tender Extremities (Brief) Extremity : Side: Bilateral Extremity: leg Extremity Finding: NOT FOUND: edema Musculoskeletal (Brief) Musculoskeletal: FOUND: extremities move equally, NOT FOUND: deformity, loss of motion, spasm, tenderness Integumentary (Brief) Integumentary: FOUND: dry, warm Neurologic (Brief) Neurological: FOUND: motor (Intact ) Psychiatric (Brief) Psychiatric: FOUND: alert, attentive, normal affect, oriented Laboratory Laboratory Laboratory Tests 09/02/16 09:44 09/03/16 04:01 Laboratory Tests 09/02/16 09:44 09/03/16 04:01 Microbiology Microbiology Microbiology Date/Time Source Procedure Growth Status 09/02/16 12:25 Peripheral/Iv Start Blood Culture - Preliminary NO GROWTH AFTER 24 HOURS Resulted 09/02/16 11:54 Peripheral/Iv Start Blood Culture - Preliminary NO GROWTH AFTER 24 HOURS Resulted 09/03/16 05:49 Nasopharynx Nasopharyngeal Culture - Preliminary CULTURE INITIATED - RESULTS PENDING Resulted Sepsis Diagnostic Criteria Sepsis Confirmed/Suspected Infection: Yes SIRS Criteria: WBC >=12,000 or <=4,000, Plasma CRP>2 above normal Assessment & Plan Problems: (1) Orbital cellulitis, right Status: Acute Assessment & Plan: Orbital inflammatory syndrome. (2) Leukocytosis Status: Acute Assessment & Plan: Infection vs medication induced. 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 Continue with Zosyn and vancomycin for antimicrobial coverage. Start Prednisone 100mg daily to decrease potential orbital inflammation. Start Culturelle due to loose stools. Will consult with Dr Wells due to chemo planned on 09/05. Recheck CBC in am due to leukocytosis. Check BMP in am due to medication use. Case discussed with Dr Witt. Time spent with pt care 35 minutes. DVT Prophylaxis: SCD'S Code Status Full Code Hospital Course Summary Disclaimer The hospital course summary below is not to be considered part of the above Progress Note. Hospital Course Summary 09/02/16- Jason *Right Orbital Edema and severe scleral edema- Seen by Dr. Witt in the ED. Concerning for cellulitis. Continue Zosyn, Levaquin, Vanco per Dr. Ronquillo. Lacrilube every 2 hours to prevent corneal abrasions. I have discussed with pt. that we may need to get an MRI of the brain-R/O mets or other acute insult of the ocular blood flow. She does not want to pursue an MRI at this point due to severe anxiety. If no improvement by tomorrow, may decide to proceed. *HTN- Resume home medications and monitor. 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 Wells. Recent injections to support leukocyte production- Monitor WBC count. Assess ESR to R/O occult vasculitis. CRP elevated. *Chronic anemia- CBC recheck in AM. *Hx. anticoagulation- no longer on Warfarin. 09/03 Doing a little better. Vision still off-hard to read with visual changes. No WHITE or eye pain. Denies nausea. No f/c. Breathing well. No chest pressure or pain. Denies ab pain-stool moving, slightly loose. No mouth pain or discomfort. With concern for orbital cellulitis and continued symptoms, will change admission status to inpatient. Continue with Zosyn and vancomycin for antimicrobial coverage. Start Prednisone 100mg daily to decrease potential orbital inflammation. Start Culturelle due to loose stools. Will consult with Dr Wells due to chemo planned on 09/05. Recheck CBC in am due to leukocytosis. Check BMP in am due to medication use. LOUIS RONQUILLO MD Sep 03, 2016 15:22
[2016-09-03 16:00] VITALS: BP 107/57; PULSE 74; RESP 15; TEMP 97.9; O2SAT 96
[2016-09-03] MEDS: LACTOBACILLUS (15B cfu) CAPSULE PO SCH (17:11)
--- NOTE | 2016-09-03 18:22 | NUR ---
SHIFT SUMMARY PT HAS BEEN ASKING FOR HER PAIN MEDICATION ON THE CLOCK, COMPLAINTS OF ABD PAIN. PT UROSTOMY BAG HAS BEEN DRAINING WELL AFTER BEING PLACED AGAIN. DR JHA PLACED ORDER TO WEAN PT OFF OF O2, PT IS CURRENTLY ON 1LNC SATTING 94%. PTS SON HAS BEEN AT PTS BEDSIDE ALL DAY. PT HAS BEEN DRINKING AND EATING 100% OF ALL HER MEALS. Addendum: 09/03/16 at 1826 by BLANCA LICONA RN NOTE CHARGED ON THE WRONG PT.
--- NOTE | 2016-09-03 18:26 | NUR ---
SHIFT SUMMARY PT HAS BEEN PLEASANT ALL DAY, DENIES ANY EYE PAIN. PTS EYE IS STILL SWOLLEN, RED AND TEARY, DRAINAGE IS CLEAR. WE CONTINUED TO USE OINTMENT AND ANTIBIOTICS TO TREAT PT. PT STATUS CHANGED TODAY FROM OUTPATIENT TO INPATIENT. PT IS COOPERATIVE WITH MEDICATIONS, POWER PORT IN PLACE IS STILL PATENT, CURRENTLY INFUSING ZOSYN. PT AMBULATES W/O ASSISTANCE BUT IS GOOD ABOUT USING CALL LIGHT WHEN NEEDING TO GET UP.
--- NOTE | 2016-09-03 21:11 | CONSF ---
DATE OF CONSULTATION 09/03/2016 CHIEF COMPLAINT Swelling of right eye. HISTORY OF PRESENT ILLNESS This is a 75-year-old woman with a history of left breast cancer treated more than five years ago with left modified radical mastectomy followed by adjuvant chemotherapy using Docetaxel-base chemotherapy. She received five years of aromatase inhibitor endocrine therapy. 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 Lately her breast cancer has come back with metastases to the bones and liver. Currently she is on Abraxane chemotherapy weekly followed by G-CSF. The patient woke up during the night with swelling of her right eye. She denied fever. Also, she had diplopia. She was seen in the emergency room by Dr. Witt. There was no optic nerve compression. The impression was inflammatory condition versus eye infection. She was started on antibiotics of vancomycin and Zosyn. Her white count was elevated due to Neupogen. Her white count was 23, now down to 14,000. Neutrophils 82%. Hemoglobin 8.3, platelets 248,000. The patient remains afebrile. She was started today on prednisone for possible inflammatory condition. CT scan of the brain was unremarkable. It showed proptosis of the right globe with extraocular muscular swelling. The patient is feeling better today. She still has difficulty with her vision but not blurry today. No headache. No numbness or weakness in the extremities. No seizure. REVIEW OF SYSTEMS GENERAL: No fever. LUNGS: No shortness of breath. No cough. CARDIOVASCULAR: No chest pain. GI: No nausea, no vomiting. She has had diarrhea since she started antibiotics. PAPER GRADER: She had diplopia, resolved. No history of seizure. PAST MEDICAL HISTORY 1. Carcinoid tumor with liver metastases, status post small bowel resection. 2. History of breast cancer, status post MRM. 3. History of abnormal echocardiogram related to carcinoid tumor. She was on Coumadin. Coumadin discontinued. 4. History of GI bleed. MEDICATIONS 1. Vancomycin and Zosyn started in the hospital. 2. Prednisone 100 mg daily. 3. Norvasc. 4. Potassium supplement. 5. Zofran as needed. 6. Levofloxacin 750 mg daily. PHYSICAL EXAMINATION VITAL SIGNS: Vital signs stable. GENERAL: Not in acute distress. Comfortable in the bed. HEENT: Proptosis of the right eye. The conjunctiva is congested. Eye movement is normal. Redness of the right eye with congestion. PAPER GRADER: Cranial nerves II-XII intact. No focal neurological deficit. LUNGS: Clear to auscultation. No wheezing. CARDIOVASCULAR: Normal sinus rhythm. No murmur. ABDOMEN: Benign. No organomegaly. No masses. BREASTS: Exam deferred. EXTREMITIES: No edema. SKIN: No rash. ASSESSMENT 1. 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 Initially this cancer was ER positive, HER2-sue negative, treated more than five years ago with left mastectomy followed by adjuvant chemotherapy followed by five years of aromatase inhibitor. Recurrent disease with bone and liver metastases, failed endocrine therapy. Repeat biopsy showed triple-negative breast cancer. Started her on Abraxane single agent. 2. 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 3. Right orbital proptosis. Differential diagnoses include cellulitis of the right eye versus inflammatory condition. The patient improved on antibiotics vancomycin, Zosyn, and Levaquin. Prednisone added today. RECOMMENDATIONS AND PLAN 1. We will hold chemotherapy for this week. 2. Continue antibiotics with close observation while on prednisone to make sure it is not an infectious condition that could get worse with prednisone. We will check liver enzymes. MTDD
--- NOTE | 2016-09-03 22:56 | NUR ---
Chart Check 24 hour chart check completed
[2016-09-03] MEDS: NORMAL SALINE 500 ML IV PRN (23:19)
[2016-09-03 23:20] VITALS: BP 120/67; PULSE 68; RESP 16; TEMP 97.2; O2SAT 97
[2016-09-04] MEDS: LACRI-LUBE EYE OINT 3.5 G TUBE RIGHT EYE SCH ×6 (01:13→11:17)
[2016-09-04] MEDS: PIPERACILLIN/TAZOBACTAM 3.375 G in NORMAL SALINE 100 ML IV SCH (05:09)
[2016-09-04 05:13] LABS: HCT - HEMATOCRIT 27.3 % (36-46); MEAN CORPUSCULAR HGB 28.8 UUG (26-34); MEAN CORPUSCULAR VOLUME 87.5 UM3 (80-100); MEAN PLATELET VOLUME 9.1 UM3 (9.4-12.4); RED BLOOD COUNT 3.12 M/MM3 (4.00-5.20); WBC - WHITE BLOOD COUNT 5.1 T/MM3 (4.5-11.0)
[2016-09-04 05:22] LABS: ANION GAP 10 MEQ/L (5-15); BUN/CREATININE RATIO 22 RATIO (6-26); CHLORIDE 100 MEQ/L (98-107); CO2 - CARBON DIOXIDE 23 MEQ/L (22-30); CREATININE 0.6 MG/DL (0.7-1.2); GLOMERULAR FILTRATION RATE 97; GLUCOSE 159 MG/DL (65-110); POTASSIUM 3.9 MEQ/L (3.6-5); SODIUM 133 MEQ/L (134-144)
--- NOTE | 2016-09-04 05:34 | NUR ---
SHIFT SUMMARY PT ALERT AND ORIENTED X 3. DENIES PAIN/N/V/SOA. PTS RIGHT EYE STILL SWOLLEN, RED, DRAINING. "IT LOOKS ALOT BETTER! MAYBE I CAN GO HOME TODAY!" REGULAR DIET. VSS, ON RA. UP WITH ASSIST X ONE AND CANE TO BR. ZOSYN INFUSING IN RIGHT PAC AT THIS TIME. BILAT SCD'S. PT IN RECLINER AT THIS TIME, CHAIR ALARM IN USE. WILL CONTINUE TO MONITOR.
[2016-09-04 06:47] LABS: LYMPHOCYTES # (MANUAL) 0.5 T/MM3 (1-4.8); NEUTROPHILS #(MANUAL)-ABSOLUTE 4.6 T/MM3 (1.8-7.7); TOTAL CELLS COUNTED 100 %
[2016-09-04 06:48] LABS: ANISOCYTOSIS 1+; BURR CELLS 1+; POIKILOCYTOSIS 1+; TEAR DROP CELLS 1+
[2016-09-04 07:36] LABS: CA 27-29 CALCULATED 95.13 U/ML (0-37.7)
[2016-09-04 08:00] VITALS: BP 122/75; PULSE 77; RESP 16; TEMP 97.4; O2SAT 97
[2016-09-04] MEDS: HCTZ PO SCH (08:04)
[2016-09-04] MEDS: LOSARTAN PO SCH (08:04)
[2016-09-04] MEDS: PHOSPHORUS 250 MG PO SCH (08:04)
[2016-09-04] MEDS: LACTOBACILLUS (15B cfu) CAPSULE PO SCH (08:05)
[2016-09-04] MEDS: --POM--AMLODIPINE 10 MG TABLET PO SCH (08:06)
[2016-09-04] MEDS: --POM--POTASSIUM CHLORIDE 10 MEQ TABLET PO SCH (08:06)
--- NOTE | 2016-09-04 09:04 | PNF ---
CHIEF COMPLAINT Feeling much better. Eye is not bothering her as much. EXAMINATION Significantly less proptosis. Very little lid retraction. There is less boggy conjunctiva than noted before. ASSESSMENT Probable orbital inflammatory syndrome. PLAN Will discuss with hospitalist about discharge today and then placing the patient on oral antibiotics and steroids, to be followed up in the clinic. SOURAV
[2016-09-04] MEDS: VANCOMYCIN 1,500 MG in NORMAL SALINE 500 ML IV SCH (10:22)
--- NOTE | 2016-09-04 10:59 | NUR ---
MELISSA CM VISITED PT. CM EXPLAINED ROLE AND PROVIDED CONTACT INFORMATION. PT PLANS TO RETURN HOME POST HOSPITAL STAY. PT IS ANXIOUS TO RETURN HOME. PT DENIES NEEDS. PT IS AWARE TO CONTACT CM IF NEEDS ARISE.
--- NOTE | 2016-09-04 11:24 | PNPDOC ---
Subjective Date DATE: 09/04/16 TIME: 11:16 Subjective F/U: Orbital cellulitis vs Optic inflammatory syndrome. Doing much better today. No pain to right eye. Vision improved-acuity back to normal; able to read and write. Able to close right eyelids completely. No WHITE. No nausea or ab pain. Stools loose. Urinating well. No f/c. Ambulating well. Objective Vital Signs Vital signs Vital Signs Date Time Temp Pulse Resp B/P Pulse Ox O2 Delivery O2 Flow Rate FiO2 09/04/16 08:00 97.4 77 16 122/75 97 Room Air Height (Feet): 4 Height (Inches): 10.00 Weight (Kilograms): 66.600 General General Appearance: Alert, Obese, Orientated x 3, Well Nourished, Malnourished , Cooperative, No Acute Distress, Looks Stated Age Eyes (Brief) Eyes: FOUND: EOMI, PERRL, other (Able to close right eye. Right eye not protruding. ), NOT FOUND: scleral icterus ENMT (Brief) ENMT: FOUND: hearing intact, mucosa moist Neck (Brief) Neck: FOUND: midline, NOT FOUND: nuchal rigidity, spasm Respiratory (Brief) Respiratory: FOUND: clear all lombardo, equal bilaterally, NOT FOUND: rales, wheezes Cardiovascular (Brief) Cardiac: FOUND: regular rate, regular rhythm, NOT FOUND: pedal edema Abdomen (Brief) Abdominal: FOUND: BS normo active x4, soft, NOT FOUND: distended, tender Extremities (Brief) Extremity : Side: Bilateral Extremity: leg Extremity Finding: NOT FOUND: edema Musculoskeletal (Brief) Musculoskeletal: FOUND: extremities move equally, NOT FOUND: deformity, loss of motion, spasm, tenderness Integumentary (Brief) Integumentary: FOUND: dry, warm Neurologic (Brief) Neurological: FOUND: cranial 2-12 intact, motor (Intact ) Psychiatric (Brief) Psychiatric: FOUND: alert, attentive, normal affect, oriented Laboratory Laboratory Laboratory Tests 09/03/16 04:01 09/04/16 04:36 Laboratory Tests 09/03/16 04:01 09/04/16 04:36 Microbiology Microbiology Microbiology Date/Time Source Procedure Growth Status 09/02/16 12:25 Peripheral/Iv Start Blood Culture - Preliminary NO GROWTH AFTER 24 HOURS Resulted 09/02/16 11:54 Peripheral/Iv Start Blood Culture - Preliminary NO GROWTH AFTER 24 HOURS Resulted 09/03/16 05:49 Nasopharynx Nasopharyngeal Culture - Preliminary NO GROWTH AFTER 24 HOURS Resulted Sepsis Diagnostic Criteria Sepsis Confirmed/Suspected Infection: Yes SIRS Criteria: WBC >=12,000 or <=4,000, Plasma CRP>2 above normal Assessment & Plan Problems: (1) Orbital cellulitis, right Status: Acute Assessment & Plan: Orbital inflammatory syndrome. (2) Leukocytosis Status: Resolved Assessment & Plan: Infection vs medication induced. 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 With pt's significant clinical improvement, do feel can discharge to home. Will continue with Augment 875 BID for 10 days - Culturelle to help with stools. Prednisone 60mg daily - likely slow taper as concern for orbital inflammatory syndrome raised. Hold on chemo this week per Dr Wells. Continue chronic medications. Will have pt f/u with Dr Witt tomorrow and Dr Chavez in 1 week. F/U with Dr Wells for chemo. See orders for details Time spent with discharge greater than 35 minutes. DVT Prophylaxis: SCD'S Code Status Full Code Hospital Course Summary Disclaimer The hospital course summary below is not to be considered part of the above Progress Note. Hospital Course Summary 09/02/16- Anthony/Yg *Right Orbital Edema and severe scleral edema- Seen by Dr. Witt in the ED. Concerning for cellulitis. Continue Zosyn, Levaquin, Vanco per Dr. Ronquillo. Lacrilube every 2 hours to prevent corneal abrasions. I have discussed with pt. that we may need to get an MRI of the brain-R/O mets or other acute insult of the ocular blood flow. She does not want to pursue an MRI at this point due to severe anxiety. If no improvement by tomorrow, may decide to proceed. *HTN- Resume home medications and monitor. 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 Wells. Recent injections to support leukocyte production- Monitor WBC count. Assess ESR to R/O occult vasculitis. CRP elevated. *Chronic anemia- CBC recheck in AM. *Hx. anticoagulation- no longer on Warfarin. 09/03 Doing a little better. Vision still off-hard to read with visual changes. No WHITE or eye pain. Denies nausea. No f/c. Breathing well. No chest pressure or pain. Denies ab pain-stool moving, slightly loose. No mouth pain or discomfort. With concern for orbital cellulitis and continued symptoms, will change admission status to inpatient. Continue with Zosyn and vancomycin for antimicrobial coverage. Start Prednisone 100mg daily to decrease potential orbital inflammation. Start Culturelle due to loose stools. Will consult with Dr Wells due to chemo planned on 09/05. Recheck CBC in am due to leukocytosis. Check BMP in am due to medication use. 09/04 Doing much better today. No pain to right eye. Vision improved-acuity back to normal; able to read and write. Able to close right eyelids completely. No WHITE. No nausea or ab pain. Stools loose. Urinating well. No f/c. Ambulating well. Case discussed with Dr Witt. With pt's significant clinical improvement, do feel can discharge to home. Will continue with Augment 875 BID for 10 days - Culturelle to help with stools. Prednisone 60mg daily - likely slow taper as concern for orbital inflammatory syndrome raised. Hold on chemo this week per Dr Wells. Continue chronic medications. Will have pt f/u with Dr Witt tomorrow and Dr Chavez in 1 week. F/U with Dr Wells for chemo. See orders for details. LOUIS RONQUILLO MD Sep 04, 2016 11:20
[2016-09-04] MEDS ORDERED: LACT1CAP46 PO (11:27)
[2016-09-04] MEDS ORDERED: PRED20TA PO (11:27)
[2016-09-04] MEDS ORDERED: AMOX-351 PO (11:27)
[2016-09-04] MEDS ORDERED: [UNRECOGNIZED DRUG - CODE] RIGHT EYE (11:27)
--- NOTE | 2016-09-04 13:19 | PNPDOC ---
Subjective Date DATE: 09/04/16 TIME: 13:19 Objective Vital Signs Vital Signs 09/04/16 08:00 Temp 97.4 Pulse 77 Resp 16 B/P 122/75 Pulse Ox 97 O2 Delivery Room Air Height (Feet): 4 Height (Inches): 10.00 Weight (Kilograms): 66.600 Psychiatric (Brief) FOUND: alert, attentive, normal affect, oriented Laboratory Laboratory Tests Test 09/04/16 04:36 White Blood Count 5.1T/MM3 Red Blood Count 3.12M/MM3 Hemoglobin 9.0GM/DL Hematocrit 27.3% Mean Corpuscular Volume 87.5UM3 Mean Corpuscular Hemoglobin 28.8UUG Mean Corpuscular Hemoglobin Concent 33.0GM/DL RDW Standard Deviation 75.1FL Platelet Count 258T/MM3 Mean Platelet Volume 9.1UM3 Immature Granulocyte % (Auto) % Neutrophils (%) (Auto) % Lymphocytes (%) (Auto) % Monocytes (%) (Auto) % Eosinophils (%) (Auto) % Basophils (%) (Auto) % Absolute Immature Granulocyte (auto T/MM3 Absolute Neutrophils (auto) T/MM3 Absolute Lymphocytes (auto) T/MM3 Absolute Monocytes (auto) T/MM3 Absolute Eosinophils (auto) T/MM3 Absolute Basophils (auto) T/MM3 Neutrophils % (Manual) 91.0% Lymphocytes % (Manual) 9.0% Absolute Neutrophils (Manual) 4.6T/MM3 Lymphocytes # (Manual) 0.5T/MM3 Poikilocytosis 1+ Anisocytosis 1+ Tear Drop Cells 1+ [place] Cells 1+ Red Cell Morphology Comment Abnormal Turbidity < 20 Sodium Level 133MEQ/L Potassium Level 3.9MEQ/L Chloride Level 100MEQ/L Carbon Dioxide Level 23MEQ/L Anion Gap 10MEQ/L Blood Urea Nitrogen 13.0MG/DL Creatinine 0.6MG/DL Glomerular Filtration Rate Calc 97 BUN/Creatinine Ratio 22RATIO Glucose Level 159MG/DL Calculated Osmolality 259MOSM/KG Calcium Level 7.0MG/DL Icterus Index < 2 Carcinoembryonic Antigen 7.72UG/L CA 27.29 95.13U/ML Thyroid Stimulating Hormone (TSH) 1.32MIU/L Chemistry Specimen Hemolysis < 15 Microbiology Microbiology Date/Time Source Procedure Growth Status 09/02/16 12:25 Peripheral/Iv Start Blood Culture - Preliminary NO GROWTH AFTER 48 HOURS Resulted 09/02/16 11:54 Peripheral/Iv Start Blood Culture - Preliminary NO GROWTH AFTER 48 HOURS Resulted 09/03/16 05:49 Nasopharynx Nasopharyngeal Culture - Preliminary NO GROWTH AFTER 24 HOURS Resulted Sepsis Diagnostic Criteria Sepsis Confirmed/Suspected Infection: Yes SIRS Criteria: WBC >=12,000 or <=4,000, Plasma CRP>2 above normal Assessment & Plan Plan/Intensity of Service Addendum. Patient was dismissed from [facility] before seen. There will be no charge and no note Code Status Full Code Hospital Course Summary Disclaimer The visit summary below is not to be considered part of the above Progress Note. Hospital Course Summary 09/02/16- Anthony/Yg *Right Orbital Edema and severe scleral edema- Seen by Dr. Witt in the ED. Concerning for cellulitis. Continue Zosyn, Levaquin, Vanco per Dr. Ronquillo. Lacrilube every 2 hours to prevent corneal abrasions. I have discussed with pt. that we may need to get an MRI of the brain-R/O mets or other acute insult of the ocular blood flow. She does not want to pursue an MRI at this point due to severe anxiety. If no improvement by tomorrow, may decide to proceed. *HTN- Resume home medications and monitor. 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 Wells. Recent injections to support leukocyte production- Monitor WBC count. Assess ESR to R/O occult vasculitis. CRP elevated. *Chronic anemia- CBC recheck in AM. *Hx. anticoagulation- no longer on Warfarin. 09/03 Doing a little better. Vision still off-hard to read with visual changes. No WHITE or eye pain. Denies nausea. No f/c. Breathing well. No chest pressure or pain. Denies ab pain-stool moving, slightly loose. No mouth pain or discomfort. With concern for orbital cellulitis and continued symptoms, will change admission status to inpatient. Continue with Zosyn and vancomycin for antimicrobial coverage. Start Prednisone 100mg daily to decrease potential orbital inflammation. Start Culturelle due to loose stools. Will consult with Dr Wells due to chemo planned on 09/05. Recheck CBC in am due to leukocytosis. Check BMP in am due to medication use. 09/04 Doing much better today. No pain to right eye. Vision improved-acuity back to normal; able to read and write. Able to close right eyelids completely. No WHITE. No nausea or ab pain. Stools loose. Urinating well. No f/c. Ambulating well. Case discussed with Dr Witt. With pt's significant clinical improvement, do feel can discharge to home. Will continue with Augment 875 BID for 10 days - Culturelle to help with stools. Prednisone 60mg daily - likely slow taper as concern for orbital inflammatory syndrome raised. Hold on chemo this week per Dr Wells. Continue chronic medications. Will have pt f/u with Dr Witt tomorrow and Dr Chavez in 1 week. F/U with Dr Wells for chemo. See orders for details. HUE ZUÑIGA APRN Sep 04, 2016 13:19
--- NOTE | 2016-09-04 13:19 | NUR ---
status/ DC Pt A/O x3, V/S stable on RA. Ambulating well up in room. Pt denies pain and no PRN meds given. DC instructions given and no questions, scripts called in. Pt dressed and belongings gathered. PAC de-accessed and heprin locked. Taken to ER door for her ride via WC.
[2016-09-05] MEDS ORDERED: PredniSONE 20 MG TABLET PO SCH (08:00)
--- NOTE | 2016-09-05 10:54 | DSF ---
ADMISSION DIAGNOSIS Orbital cellulitis. DISCHARGE DIAGNOSIS Orbital cellulitis, right eye - improving. ASSOCIATED CONDITIONS AND COMPLICATIONS Possible [place] inflammatory syndrome. Leukocytosis (present on admission) - defervescing . Metastatic breast cancer - liver metastasis. 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 Hypertension. Chronic anemia. Obesity with BMI 31.8. PROCEDURES None. CONSULTS Dr. Witt - Ophthalmology Dr. Wells - Oncology CLINICAL RESUME Tanya Lopes is a 75-year-old female who presents to [facility] emergency room secondary to right eye pain and swelling. Symptoms onset overnight. She did notice some headache with concentration of pain behind her right eye. Pain did worsen overnight and when she woke on the morning of presentation, she noticed right of diet was much more red and protruding. She did try some Aleve for the headache which helped decrease her pain. Her right eye redness and swelling has progressed as the day went. She ultimately presents to emergency room for evaluation. Lab did show white count elevated at 23.8 but the patient recently received G-CSF. She did undergo orbital CT scan which showed proptosis of the right globe with extraocular muscular swelling which could be due to orbital cellulitis, intramuscular hemorrhage or orbital pseudotumor. In light of these findings, Dr. Witt was contacted who did evaluate the patient in emergency room. With concern of orbital cellulitis, as well as possible orbital inflammatory syndrome, Dr. Ronquillo was notified and patient was subsequently placed in outpatient observation status at [facility] for further evaluation and treatment. For complete details of the H&P refer to that document. LABORATORY White blood count was 23.8 with 95% neutrophils and 2% bands. Hemoglobin was 10.5 with hematocrit 31.6, MCV 88.0 and platelets 284,000. Serum sodium was 136, potassium 4.5, chloride 103, CO2 25, BUN 15 and creatinine 0.7, GFR 81 and blood glucose 121. Magnesium was 1.6. Transaminases are unremarkable. Plasma lactate 0.8. CEA is elevated at 7.72 with CA 27-29 elevated at 95.13. Procalcitonin 0.07. TSH normal at 1.32. INR is 1.11. UA is remarkable only for trace blood. HOSPITAL COURSE The patient was placed in outpatient observation status at [facility] under the care of Dr. Ronquillo. We did consult Dr. Witt for ophthalmological evaluation. In the emergency room she was given a one-time dose of Levaquin. We did initiate Zosyn and vancomycin for antimicrobial coverage of orbital infection. IV fluids were given in emergency room but these were not continued. Dr. Witt did recommend Lacri-Lube every two hours as well as p.r.n. to help keep her eye hydrated to minimize corneal abrasion due to her proptosis. Home medications were continued. SCDs were initiated for DVT prophylaxis. Lab was monitored. By hospital day #1, her white count was starting to defervesce, down to 14.3. She was having a little less redness and swelling of the eye. Her visual status was still off. Due to concern about her orbital cellulitis, we did change admission status to inpatient. Treatments initiated in observation were continued. Fortunately the remainder of her hospital course was one of very good improvement. By the next hospital day, there was much less proptosis of her right eye. Indeed, she was able to close her eye without difficulty. She felt her visual acuity and ability to read was returning to baseline. She was afebrile and her vitals were stable. White count had decreased to 5.1. She was eating and drinking well. We had started prednisone 100 mg on September 03 and she continued the dose of 100 mg on the . In conversation with Dr. Witt, we will continue with prednisone but at a lower dose of [address] Wells was consulted during hospitalization. He did feel in light of this acute finding, chemotherapy that was scheduled on September 05 should be held at least one week. As her symptoms were improving, we discussed about discharge to home and the patient felt agreeable to this. She was able to be discharged to home in stable condition. Narrative disclaimer: Above narrative is a brief summary of the patient's hospitalization; for complete details of the hospital course, refer to the medical record. DISCHARGE CONDITION Stable/good. DIET Regular. ACTIVITIES As tolerated. MEDICATIONS Augmentin 875 mg p.o. b.i.d. x10 days. Acidophilus 1 tablet t.i.d. with meals. Akwa Tears ointment topically to right eye q.i.d. and p.r.n. Prednisone 60 mg with breakfast - taper to be set up by Dr. Witt. Norvasc 10 mg daily. Calcium with vitamin D 600 mg b.i.d. Vitamin D3 2000 units daily. Xgeva 128 mg every four weeks. Glucosamine 2000 mg daily. Somatuline one dose every 4 weeks. Losartan HCT 100/25 daily. Aleve 440 mg b.i.d. with meals p.r.n. pain. Abraxane Phosphorus 250 mg b.i.d. Potassium 20 mEq with breakfast. FOLLOWUP The patient will follow with Dr. Witt on 09/05/2016 for ophthalmological reevaluation. The patient will follow with Dr. Chavez in one week for medical reevaluation. The patient will follow with Dr. Wells for chemotherapy and cancer care. INSTRUCTIONS TO PATIENT Patient was instructed on her diagnosis and treatments provided. We encouraged her to be adherent with medications. She will watch for temperature elevation greater than 100.4. She will watch for change in vision or loss of visual acuity. We encouraged her on healthy well-rounded diet and activities. Should problems or need occur, she will be in contact with Dr. Witt, Dr. Chavez or Dr. Wells. If symptoms become quite dire, she can present to emergency room for acute evaluation. She voiced understanding of the above. Time spent with discharge greater than 35 minutes. MTDD
--- NOTE | 2016-09-05 14:06 | NUR ---
CM CM LVM
--- NOTE | 2016-09-07 15:02 | NUR ---
CM CM LVM
== END 2016-09-04 14:07 | disposition home or self-care (01) | DRG 121 ==
LOC: ED 09:11 → EDHOLD 12:24 → MED 12:55 → OBSVTOIN 09-03 13:17
PROVIDERS: ADMIT Hospitalist; ATTEND Hospitalist
DX: H05.011 Cellulitis of right orbit (principal); C78.7 Secondary malignant neoplasm of liver and intrahepatic bile duct; C50.919 Malignant neoplasm of unspecified site of unspecified female breast; I10 Essential (primary) hypertension; D49.89 Neoplasm of unspecified behavior of other specified sites; D49.0 Neoplasm of unspecified behavior of digestive system; D64.9 Anemia, unspecified; H05.221 Edema of right orbit; E78.5 Hyperlipidemia, unspecified; M19.91 Primary osteoarthritis, unspecified site; E66.9 Obesity, unspecified; Z68.30 Body mass index [BMI] 30.0-30.9, adult
CPT/HCPCS: 36415; 80048; 80053; 81003; 82378; 83605; 83735; 84145; 84443; 85025; 85610; 85652; 86140; 86300; 87040; 87070; 96365; 96367; 96375; 99218

== ENCOUNTER → 2016-09-05 | Outpatient (CLI) | payer MEDICARE, MEDICAID ==
[~2016-09-05] MED LIST changes: +AMOX-351 PO; -AMOX500T2 PO; +DENO120V INJ; -EVER5TAB; -EXEM25TA5; -FERR325T40 PO; +LACT1CAP46 PO; +LANR90SY IJ; -MAGN250T33 PO; +NAPR220T61 PO; +PACL100V IV; +PHOS250T5 PO; +POTA10TA14 PO; -POTA20TA10 PO; +PRED20TA PO; -WARF1TAB47 PO; +[UNRECOGNIZED DRUG - CODE] RIGHT EYE
[2016-09-05 09:48] LABS: HCT - HEMATOCRIT 26.9 % (36-46); HGB - HEMOGLOBIN 9.2 GM/DL (12-16); MEAN CORPUSCULAR HGB 29.6 UUG (26-34); MEAN CORPUSCULAR HGB CONC(MCHC 34.2 GM/DL (31-37); MEAN CORPUSCULAR VOLUME 86.5 UM3 (80-100); MEAN PLATELET VOLUME 8.9 UM3 (9.4-12.4); RED BLOOD COUNT 3.11 M/MM3 (4.00-5.20); WBC - WHITE BLOOD COUNT 9.9 T/MM3 (4.5-11.0)
[2016-09-05 09:59] LABS: ALBUMIN 4.2 G/DL (3.5-5.0); ALBUMIN/GLOBULIN RATIO 1.4 RATIO (1.1-2.2); ALKALINE PHOSPHATASE 112 U/L (38-126); ALT (SGPT) 41 U/L (9-52); ANION GAP 13 MEQ/L (5-15); AST (SGOT) 30 U/L (14-36); BUN/CREATININE RATIO 25 RATIO (6-26); CALCIUM 7.2 MG/DL (8.4-10.2); CHLORIDE 97 MEQ/L (98-107); CO2 - CARBON DIOXIDE 25 MEQ/L (22-30); CREATININE 0.6 MG/DL (0.7-1.2); GLOMERULAR FILTRATION RATE 97; GLUCOSE 110 MG/DL (65-110); POTASSIUM 3.2 MEQ/L (3.6-5); SODIUM 135 MEQ/L (134-144); TOTAL PROTEIN 7.1 G/DL (6.3-8.2)
[2016-09-05 10:41] LABS: ANISOCYTOSIS 1+; BAND NEUTROPHILS # 1.4 T/MM3; BASOPHILS # (MANUAL) 0.1 T/MM3 (0-0.2); LYMPHOCYTES # (MANUAL) 0.9 T/MM3 (1-4.8); MONOCYTES # (MANUAL) 1.6 T/MM3 (0-0.8); NEUTROPHILS #(MANUAL)-ABSOLUTE 5.9 T/MM3 (1.8-7.7); NUCLEATED RED BLOOD CELLS 1; POIKILOCYTOSIS 1+; TOTAL CELLS COUNTED 100 %
== END ==
LOC: LABN 09:41
PROVIDERS: ATTEND Internal Medicine Medical Oncology
DX: C50.212 Malignant neoplasm of upper-inner quadrant of left female breast (principal)
CPT/HCPCS: 80053; 85025